=== PATIENT | male | born 1990 | race American Indian/Alaskan Native ===

== ENCOUNTER 2020-07-21 01:14 | Emergency (ER) | payer SELFPAY ==
--- NOTE | 2020-07-21 06:58 | XRay Report ---
CHEST 1 VIEW INDICATION: HTN. COMPARISON: None. FINDINGS: Support devices: None. Heart: Normal. Lungs/Pleura: No acute pulmonary or pleural findings. IMPRESSION: 1. No acute findings. Signer Name: Miguel A Thorpe MD Signed: 07/21/2020 6:53 AM Workstation Name: [id number]
[2020-07-21 07:08] LABS: Basophils # (Auto) 0.1 K/mm3 (0.0-0.1); Basophils % (Auto) 0.6 % (0.0-1.8); Eosinophils # (Auto) 0.1 K/mm3 (0.0-0.4); Eosinophils % (Auto) 1.3 % (0.0-4.3); Hematocrit 42.1 % (35.5-45.6); Hemoglobin 14.4 gm/dl (11.8-15.2); Lymphocytes # (Auto) 1.5 K/mm3 (1.2-5.4); Lymphocytes % (Auto) 14.9 % (13.4-35.0); Mean Corpuscular HGB Conc 34 % (32-34); Mean Corpuscular Volume 88 fl (84-94); Monocytes % (Auto) 10.4 % (0.0-7.3); Platelet Count 329 K/mm3 (140-440); Red Blood Count 4.81 M/mm3 (3.65-5.03)
[2020-07-21 07:18] LABS: Partial Thromboplastin Time 30.7 Sec. (24.2-36.6)
--- NOTE | 2020-07-21 07:18 | Emergency Department Report ---
ED General Adult HPI - General Chief complaint: Nosebleed Stated complaint: NOSE BLEED Time Seen by Provider: 07/21/20 06:17 Source: patient Mode of arrival: Ambulatory Limitations: No Limitations - History of Present Illness Initial comments: This is a 30-year-old male who presents to the emergency department because of nosebleed. He describes a minimal amount of bleeding from his left nares. He states he has not had this before. He does admit to noncompliance with previous prescription of blood pressure medicine. He does not refer shortness of breath or pain otherwise. He denies headache or any focal neurological type symptoms. He denies any unusual activity last night. -: minutes(s) Associated Symptoms: denies other symptoms - Related Data Previous Rx's Medication Instructions Recorded Last Taken Type Lisinopril/Hydrochlorothiazide 1 tab PO QDAY #30 tab 07/21/20 Unknown Rx [Zestoretic 20-12.5 mg] labetaloL [Labetalol 200mg TAB] 200 mg PO BID #60 tablet 07/21/20 Unknown Rx Allergies Allergy/AdvReac Type Severity Reaction Status Date / Time No Known Allergies Allergy Unverified 07/21/20 01:53 ED Review of Systems ROS: Stated complaint: NOSE BLEED Other details as noted in HPI Comment: All other systems reviewed and negative ED Past Medical Hx - Past Medical History Hx Hypertension: Yes - Surgical History Past Surgical History?: No - Social History Smoking Status: Current Every Day Smoker Substance Use Type: Alcohol - Medications Home Medications: Home Medications Medication Instructions Recorded Confirmed Last Taken Type Lisinopril/Hydrochlorothiazide 1 tab PO QDAY #30 tab 07/21/20 Unknown Rx [Zestoretic 20-12.5 mg] labetaloL [Labetalol 200mg TAB] 200 mg PO BID #60 tablet 07/21/20 Unknown Rx ED Physical Exam - General Limitations: No Limitations General appearance: alert, in no apparent distress - Head Head exam: Present: atraumatic, normocephalic - Eye Eye exam: Present: normal appearance - ENT ENT exam: Present: mucous membranes moist, other (Minimal blood noted, no active bleeding) - Neck Neck exam: Present: normal inspection - Respiratory Respiratory exam: Present: normal lung sounds bilaterally. Absent: respiratory distress - Cardiovascular Cardiovascular Exam: Present: regular rate, normal rhythm. Absent: systolic murmur, diastolic murmur, rubs, gallop - GI/Abdominal GI/Abdominal exam: Present: soft, normal bowel sounds. Absent: distended, tenderness, guarding, rebound - Rectal Rectal exam: Present: deferred - Extremities Exam Extremities exam: Present: normal inspection - Back Exam Back exam: Present: normal inspection - Neurological Exam Neurological exam: Present: alert, oriented X3, CN II-XII intact. Absent: motor sensory deficit - Psychiatric Psychiatric exam: Present: normal affect, normal mood - Skin Skin exam: Present: warm, dry, intact, normal color. Absent: rash ED Course Vital Signs 07/21/20 07/21/20 07/21/20 01:53 07:11 07:15 Temperature 99 F Pulse Rate 108 H 107 H 98 H Respiratory 18 18 23 Rate Blood Pressure 236/143 233/138 Blood Pressure [Right] O2 Sat by Pulse 100 Oximetry 07/21/20 07/21/20 07/21/20 07:16 07:31 07:45 Temperature 98.7 F Pulse Rate 99 H 93 H 80 Respiratory 18 20 21 Rate Blood Pressure 233/138 233/138 Blood Pressure 233/138 [Right] O2 Sat by Pulse 100 Oximetry 07/21/20 07/21/20 07/21/20 08:01 08:13 08:15 Temperature Pulse Rate 85 93 H 90 Respiratory 23 24 Rate Blood Pressure 233/138 203/118 203/118 Blood Pressure [Right] O2 Sat by Pulse Oximetry 07/21/20 07/21/20 07/21/20 08:20 08:31 08:45 Temperature Pulse Rate 93 H 86 101 H Respiratory 23 21 Rate Blood Pressure 203/118 203/118 203/118 Blood Pressure [Right] O2 Sat by Pulse Oximetry 07/21/20 07/21/20 07/21/20 09:00 09:15 09:31 Temperature Pulse Rate 87 85 79 Respiratory 22 23 21 Rate Blood Pressure 186/108 180/107 176/101 Blood Pressure [Right] O2 Sat by Pulse Oximetry 07/21/20 07/21/20 07/21/20 09:45 10:00 10:15 Temperature Pulse Rate 85 89 88 Respiratory 19 24 21 Rate Blood Pressure 170/109 178/107 190/115 Blood Pressure [Right] O2 Sat by Pulse Oximetry 07/21/20 07/21/20 07/21/20 10:30 10:45 11:00 Temperature Pulse Rate 95 H 90 87 Respiratory 23 24 24 Rate Blood Pressure 184/121 187/111 182/110 Blood Pressure [Right] O2 Sat by Pulse Oximetry 07/21/20 07/21/20 07/21/20 11:15 11:30 11:45 Temperature Pulse Rate 91 H 86 94 H Respiratory 22 22 18 Rate Blood Pressure 177/108 191/121 165/117 Blood Pressure [Right] O2 Sat by Pulse Oximetry 07/21/20 07/21/20 07/21/20 12:09 12:15 12:30 Temperature Pulse Rate 91 H 86 84 Respiratory 20 22 22 Rate Blood Pressure 165/117 201/109 203/113 Blood Pressure [Right] O2 Sat by Pulse 96 96 Oximetry 07/21/20 07/21/20 07/21/20 12:45 13:00 13:02 Temperature Pulse Rate 93 H 88 75 Respiratory 22 22 Rate Blood Pressure 209/119 204/111 203/117 Blood Pressure [Right] O2 Sat by Pulse 95 97 Oximetry 07/21/20 07/21/20 07/21/20 13:15 13:30 13:35 Temperature Pulse Rate 86 88 82 Respiratory 20 22 Rate Blood Pressure 196/126 186/109 186/109 Blood Pressure [Right] O2 Sat by Pulse 98 97 Oximetry - Reevaluation(s) Reevaluation #1: Patient did require several doses of labetalol. Ultimately he was given p.o. clonidine and Vasotec. His blood pressure reached a reasonable target. He was completely asymptomatic except for the mild epistaxis. Patient is appropriate for outpatient management. The necessity of getting his prescriptive medications is strongly emphasized. The need for frequent monitoring of his blood pressure is likewise explained. He is given return criteria. Should his blood pressure become extremely elevated again he will return and likely admission will be necessitated. 07/21/20 13:43 Reevaluation #2: No further nosebleed. Patient remained asymptomatic. He is appropriate for outpatient management. 07/21/20 13:51 ED Medical Decision Making - Lab Data Result diagrams: 07/21/20 06:42 07/21/20 06:42 Laboratory Results - last 24 hr 07/21/20 07/21/20 07/21/20 06:42 06:42 06:42 WBC 10.0 RBC 4.81 Hgb 14.4 Hct 42.1 MCV 88 MCH 30 MCHC 34 RDW 13.0 L Plt Count 329 Lymph % (Auto) 14.9 [place] % (Auto) 10.4 H Eos % (Auto) 1.3 Baso % (Auto) 0.6 Lymph # (Auto) 1.5 [place] # (Auto) 1.0 H Eos # (Auto) 0.1 Baso # (Auto) 0.1 Seg Neutrophils % 72.8 H Seg Neutrophils # 7.3 PT 13.1 INR 1.00 APTT 30.7 Sodium 138 Potassium 3.7 Chloride TNR Carbon Dioxide 28 Anion Gap 13 BUN 25 H Creatinine 1.0 Estimated GFR > 60 BUN/Creatinine Ratio 25 Glucose 111 H Calcium 9.8 Magnesium 2.20 Total Bilirubin AST Alkaline Phosphatase CK-MB (CK-2) Troponin T Total Protein Albumin Albumin/Globulin Ratio 07/21/20 07/21/20 06:42 06:42 WBC RBC Hgb Hct MCV MCH MCHC RDW Plt Count Lymph % (Auto) [facility] % (Auto) Eos % (Auto) Baso % (Auto) Lymph # (Auto) [facility] # (Auto) Eos # (Auto) Baso # (Auto) Seg Neutrophils % Seg Neutrophils # PT INR APTT Sodium Potassium Chloride Carbon Dioxide Anion Gap BUN Creatinine Estimated GFR BUN/Creatinine Ratio Glucose Calcium Magnesium Total Bilirubin 0.40 AST 27 Alkaline Phosphatase 88 CK-MB (CK-2) 5.9 H 6.0 H Troponin T < 0.010 Total Protein 8.2 Albumin 4.6 Albumin/Globulin Ratio 1.3 - EKG Data -: EKG Interpreted by Ar EKG shows normal: sinus rhythm, axis, intervals, QRS complexes, ST-T waves Rate: normal - EKG Data Interpretation: no acute changes - Radiology Data Radiology results: report reviewed (Chest x-ray no acute process) Critical care attestation.: If time is entered above; I have spent that time in minutes in the direct care of this critically ill patient, excluding procedure time. ED Disposition Clinical Impression: Accelerated hypertension, Epistaxis Disposition: TO HOME OR SELFCARE Is pt being admited?: No Does the pt Need Aspirin: No Condition: Stable Instructions: Preventing Hypertension, Hypertension (ED) Additional Instructions: You must monitor your blood pressure quite frequently. I would recommend 3-4 times a day. If the upper number goes over 200 again or the lower number over 120, you should return to the emergency department for further care and evaluation. It is essential that you get your prescription and begin it today as well as follow-up at the [facility]. Prescriptions: labetaloL [Labetalol 200mg TAB] 200 mg PO BID #60 tablet Lisinopril/Hydrochlorothiazide [Zestoretic 20-12.5 mg] 1 tab PO QDAY #30 tab Referrals: PRIMARY CARE, [Primary Care Provider] - 3-5 Days [facility] [Provider Group] - 2-3 Days Time of Disposition: 13:45
[2020-07-21 07:23] LABS: BUN/Creatinine Ratio 25; Blood Urea Nitrogen 25 mg/dL (9-20); Calcium 9.8 mg/dL (8.4-10.2); Hemolysis Index 2
[2020-07-21 07:25] LABS: Creatine Kinase MB 5.9 ng/mL (0.0-4.0)
[2020-07-21 07:27] LABS: Albumin 4.6 g/dL (3.9-5)
[2020-07-21 08:25] LABS: Bilirubin,Urine NEG (Negative); Blood,Urine SM (Negative); Color,Urine Yellow (Yellow); Mucus,Urine FEW /HPF; Protein,Urine <15 mg/dL mg/dL (Negative); Urobilinogen,Urine < 2.0 mg/dL (<2.0)
[2020-07-21 08:33] LABS: Amphetamine Screen,Urine Negative; Benzodiazepines Screen,Urine Negative; Cocaine Screen,Urine Negative; Methadone Screen,Urine Negative; Opiate Screen,Urine Negative
[2020-07-21 08:48] LABS: Alanine Aminotransferase 38 units/L (7-56)
[2020-07-21 08:52] LABS: Cannabinoid Screen,Urine PRESUMPTIVE POSITIVE
[2020-07-21 08:52] LABS: Bilirubin,Direct < 0.2 mg/dL (0-0.2)
[2020-07-21] MEDS ORDERED: ENALAPRILAT 2.5 MG/2 ML INJ IV ONE (12:50)
[2020-07-21] MEDS ORDERED: cloNIDine 0.2 MG TAB ONE (12:58)
[2020-07-21] MEDS ORDERED: cloNIDine 0.2 MG TAB PO ONE (13:01)
[2020-07-21 14:25] VITALS: BP 162/90
== END 2020-07-21 14:24 | disposition home or self-care (01) ==
LOC: ED 01:14
DX: R04.0 Epistaxis (principal); I10 Essential (primary) hypertension; F17.200 Nicotine dependence, unspecified, uncomplicated; Z79.899 Other long term (current) drug therapy
CPT/HCPCS: 36415; 71045; 80048; 80076; 80307; 81001; 82550; 82553; 83735; 84484; 85025; 85610; 85730; 93005; 96374; 96375

== ENCOUNTER 2022-04-01 18:09 | Inpatient (IN) | payer OTHER ==
[2022-04-01] MEDS ORDERED: hydrALAZINE 100 MG TAB PO ONE (18:22)
[2022-04-01 19:09] LABS: Basophils # (Auto) 0.1 K/mm3 (0.0-0.1); Basophils % (Auto) 0.9 % (0.0-1.8); Eosinophils # (Auto) 0.2 K/mm3 (0.0-0.4); Eosinophils % (Auto) 2.8 % (0.0-4.3); Hematocrit 41.2 % (35.5-45.6); Hemoglobin 13.9 gm/dl (11.8-15.2); Lymphocytes # (Auto) 0.8 K/mm3 (1.2-5.4); Mean Corpuscular HGB Conc 34 % (32-34); Mean Corpuscular Volume 86 fl (84-94); Monocytes # (Auto) 1.1 K/mm3 (0.0-0.8); Monocytes % (Auto) 12.4 % (0.0-7.3); Platelet Count 341 K/mm3 (140-440); Red Cell Distribution Width 13.5 % (13.2-15.2)
--- NOTE | 2022-04-01 19:22 | XRay Report ---
CHEST 1 VIEW 04/01/2022 6:16 PM INDICATION / CLINICAL INFORMATION: Chest Pain. COMPARISON: One view of the chest from 07/21/2020. FINDINGS: SUPPORT DEVICES: None. HEART / MEDIASTINUM: The cardiac silhouette is mildly enlarged. LUNGS / PLEURA: There are generalized bilateral interstitial opacities. No dense area of consolidatio n. No significant pleural effusion. No pneumothorax. ADDITIONAL FINDINGS: No significant additional findings. IMPRESSION: Mild cardiomegaly with suspected pulmonary edema. Signer Name: Boris Stevens MD Signed: 04/01/2022 7:18 PM Workstation Name: [id number]
[2022-04-01 19:34] LABS: Alanine Aminotransferase 24 units/L (7-56); Albumin 4.5 g/dL (3.9-5); BUN/Creatinine Ratio 16; Blood Urea Nitrogen 21 mg/dL (9-20); Calcium 9.5 mg/dL (8.4-10.2); Hemolysis Index 3
[2022-04-01] MEDS ORDERED: hydrALAZINE 20 MG/1 ML INJ IV ONE (20:06)
--- NOTE | 2022-04-01 21:00 | Cat Scan Report ---
CTA CHEST, ABDOMEN, AND PELVIS (AORTIC DISSECTION) INDICATION / CLINICAL INFORMATION: Chest pain, LLQ pain. TECHNIQUE: Axial CT images were obtained through the chest, abdomen, and pelvis after injection of 10 0 cc Omnipaque 350 IV contrast. 3 plane MIP and/or 3D reconstructions were produced. All CT scans at this location are performed using CT dose reduction for ALARA by means of automated exposure control. COMPARISON: 2 views of the chest performed today. FINDINGS: HEART: - Size: Mildy enlarged. - [place] Coronary Calcification: None. - Pericardium: No pericardial effusion. THORACIC AORTA: - Dissection: No dissection. - Aneurysm: No aneurysm or pseudoaneurysm. - Atherosclerosis: No significant atherosclerosis. GREAT VESSELS: No acute abnormality. No significant atherosclerosis. PULMONARY ARTERIES: No pulmonary emboli. CHEST VEINS: Single SVC of normal caliber as visualized to the right of midline. No significant abnor mality. ABDOMINAL AORTA: - Dissection: No dissection. - Aneurysm: No aneurysm or pseudoaneurysm. - Atherosclerosis: No significant atherosclerosis. CELIAC TRUNK: No significant abnormality. SUPERIOR MESENTERIC ARTERY: No significant abnormality. RENAL ARTERIES: No significant abnormality. INFERIOR MESENTERIC ARTERY: No significant abnormality. RIGHT ILIAC ARTERIES: No acute abnormality. No significant atherosclerosis. LEFT ILIAC ARTERIES: No acute abnormality. No significant atherosclerosis. RIGHT FEMORAL ARTERIES: No acute abnormality. No significant atherosclerosis. LEFT FEMORAL ARTERIES: No acute abnormality. No significant atherosclerosis. ABDOMINOPELVIC VEINS: Single IVC of normal caliber to the right of midline. No significant abnormalit y. ADDITIONAL CHEST FINDINGS: No significant additional findings. ADDITIONAL ABDOMINOPELVIC FINDINGS: No significant additional findings. SKELETAL SYSTEM: No significant abnormality. IMPRESSION: 1. No aortic dissection or other acute findings. 2. Mild cardiomegaly. Signer Name: Boris Stevens MD Signed: 04/01/2022 8:55 PM Workstation Name: [id number]
--- NOTE | 2022-04-01 21:47 | Emergency Department Report ---
ED Chest Pain HPI - General Chief Complaint: Chest Pain Stated Complaint: CHEST & LEFT SIDE PAIN FOR THE PAST 45 MIN Time Seen by Provider: 04/01/22 19:08 Source: patient Mode of arrival: Ambulatory Limitations: No Limitations - History of Present Illness Initial Comments: Patient is a 31-year-old male presenting to ED with complaint of left-sided chest pain which he describes as burning in nature. Symptoms began roughly an hour ago. He also complains of left lower quadrant pain beginning around the same time. He denies any past medical history aside from hypertension and does not take any medications. Severity scale (0 -10): 7 - Related Data Previous Rx's Medication Instructions Recorded Last Taken Type Lisinopril/Hydrochlorothiazide 1 tab PO QDAY #30 tab 07/21/20 Unknown Rx [Zestoretic 20-12.5 mg] labetaloL [Labetalol 200mg TAB] 200 mg PO BID #60 tablet 07/21/20 Unknown Rx Allergies Allergy/AdvReac Type Severity Reaction Status Date / Time No Known Allergies Allergy Verified 04/01/22 18:19 Heart Score - HEART Score History: Slightly suspicious EKG: Non-specific Age: < 45 Risk factors: 1-2 risk factors Troponin: < normal limit HEART Score: 2 - EKG Read Time Time EKG Completed: 18:23 (;) EKG Read Time: 18:27 - Critical Actions Critical Actions: 0-3 pts:0.9-1.7%risk of adverse cardiac event.Candidate for discharge ED Review of Systems ROS: Stated complaint: CHEST & LEFT SIDE PAIN FOR THE PAST 45 MIN Other details as noted in HPI Comment: All other systems reviewed and negative Constitutional: denies: chills, fever ENT: denies: ear pain, throat pain Respiratory: denies: cough, shortness of breath, wheezing Cardiovascular: chest pain Endocrine: no symptoms reported Gastrointestinal: abdominal pain. denies: nausea, vomiting Genitourinary: denies: urgency, dysuria Musculoskeletal: denies: back pain, joint swelling, arthralgia Skin: denies: rash, lesions Neurological: denies: headache, weakness, paresthesias Psychiatric: denies: anxiety, depression ED Past Medical Hx - Past Medical History Hx Hypertension: Yes - Social History Smoking Status: Never Smoker - Medications Home Medications: Home Medications Medication Instructions Recorded Confirmed Last Taken Type Lisinopril/Hydrochlorothiazide 1 tab PO QDAY #30 tab 07/21/20 Unknown Rx [Zestoretic 20-12.5 mg] labetaloL [Labetalol 200mg TAB] 200 mg PO BID #60 tablet 07/21/20 Unknown Rx ED Physical Exam - General Limitations: No Limitations General appearance: alert, in no apparent distress - Head Head exam: Present: atraumatic, normocephalic - Neck Neck exam: Present: normal inspection. Absent: tenderness - Respiratory Respiratory exam: Present: normal lung sounds bilaterally, respiratory distress - Cardiovascular Cardiovascular Exam: Present: regular rate, normal rhythm, normal heart sounds - GI/Abdominal GI/Abdominal exam: Present: soft. Absent: distended, tenderness - Rectal Rectal exam: Present: deferred - Neurological Exam Neurological exam: Present: alert, oriented X3 - Psychiatric Psychiatric exam: Present: normal affect, normal mood - Skin Skin exam: Present: warm, dry, intact, normal color ED Course Vital Signs 04/01/22 04/01/22 04/01/22 18:15 19:03 20:22 Pulse Rate 118 H 106 H Respiratory 16 Rate Blood Pressure 255/146 Blood Pressure 238/151 [Left] O2 Sat by Pulse 99 98 Oximetry 04/01/22 21:45 Pulse Rate 117 H Respiratory 20 Rate Blood Pressure Blood Pressure 223/108 [Left] O2 Sat by Pulse 99 Oximetry ED Medical Decision Making - Lab Data Result diagrams: 04/01/22 Unknown 04/01/22 Unknown - Medical Decision Making Blood pressure 238/151. Patient given IV hydralazine. Chest x-ray report shows cardiomegaly and possible edema. Patient denies any shortness of breath. CBC and CMP grossly unremarkable. Troponin is undetectable. CTA chest, abdomen and pelvis negative for dissection. Will start on nitro drip and admit to hospitalist for hypertensive urgency. Critical care attestation.: If time is entered above; I have spent that time in minutes in the direct care of this critically ill patient, excluding procedure time. ED Disposition Clinical Impression: Hypertensive urgency, Left-sided chest pain, Left lower quadrant pain Disposition: ADMITTED INPATIENT Is pt being admited?: Yes Condition: Stable
[2022-04-01] MEDS ORDERED: ASPIRIN 325 MG TAB PO ONE (22:10)
[2022-04-01] MEDS ORDERED: traMADol 50 MG TAB PO PRN (22:22)
[2022-04-01] MEDS ORDERED: MAGNESIUM HYDROXIDE (MOM) ORAL LIQD UDC PO PRN (22:22)
[2022-04-01] MEDS ORDERED: MORPHINE 2 MG/1 ML INJ IV PRN ×2 (22:22)
[2022-04-01] MEDS ORDERED: ACETAMINOPHEN 325 MG TAB PO PRN ×2 (22:22)
[2022-04-01] MEDS ORDERED: NITROGLYCERIN 0.4 MG TAB SUBL SL PRN (22:22)
[2022-04-01] MEDS ORDERED: MORPHINE 4 MG/1 ML INJ IV PRN (22:22)
--- NOTE | 2022-04-01 22:32 | History and Physical Report ---
History of Present Illness Date of examination: 04/01/22 Date of admission: 04/01/2022 Chief complaint: Chest Pain History of present illness: 31-year-old -[place] male with known history of hypertension presenting to the emergency room today complaining of chest pain. Chest pain is said to be left-sided and was burning in nature. Chest pain started about an hour prior to reporting to the emergency room. He admits that he has not been compliant with his blood pressure medication because he has been depressed lately. Chest pain is nonradiating, no known relieving or exacerbating factor. Patient denies any headache or dizziness, denies any nausea vomiting and denies any hematuria or dysuria. Denies any cough or shortness of breath. Upon arrival in the emergency room today blood pressure was in the 230s systolic and 120s diastolic. He had a dose of IV hydralazine without any significant improvement. He was subsequently placed on nitro glycerin drip. Work-up in the emergency room today including labs, CT scan of the chest and abdomen were unremarkable. Patient being admitted for hypertensive urgency. Past History Past Medical History: hypertension Past Surgical History: No surgical history Social history: smoking (Occasionally), alcohol abuse (Occasionally) Family history: diabetes (Mother) Medications and Allergies Allergies Allergy/AdvReac Type Severity Reaction Status Date / Time No Known Allergies Allergy Verified 04/01/22 18:19 Home Medications Medication Instructions Recorded Confirmed Last Taken Type Lisinopril/Hydrochlorothiazide 1 tab PO QDAY #30 tab 07/21/20 Unknown Rx [Zestoretic 20-12.5 mg] labetaloL [Labetalol 200mg TAB] 200 mg PO BID #60 tablet 07/21/20 Unknown Rx Active Meds: Active Medications Acetaminophen (Acetaminophen 325 Mg Tab) 650 mg PO Q6H PRN PRN Reason: Pain, Mild (1-3) Acetaminophen (Acetaminophen 325 Mg Tab) 650 mg PO Q6H PRN PRN Reason: Pain MILD(1-3)/Fever >100.5/RIOS Nitroglycerin/Dextrose (Tridil Drip 50mg/250ml) 50 mg in 250 mls @ 3 mls/hr IV TITR BILL; Protocol Sodium Chloride (Sodium Chloride 0.9% 10 Ml Flush Syringe) 10 ml IV BID BILL Sodium Chloride (Sodium Chloride 0.9% 10 Ml Flush Syringe) 10 ml IV PRN PRN PRN Reason: LINE FLUSH Sodium Chloride (Sodium Chloride 0.9% 10 Ml Flush Syringe) 10 ml IV PRN PRN PRN Reason: LINE FLUSH Tramadol HCl (Tramadol 50 Mg Tab) 50 mg PO Q6H PRN PRN Reason: Pain, Moderate (4-6) Review of Systems Constitutional: no fever, no chills Ears, nose, mouth and throat: no nasal congestion, no sore throat Cardiovascular: chest pain, no palpitations Respiratory: no cough, no shortness of breath Gastrointestinal: abdominal pain, no nausea, no vomiting, no diarrhea Genitourinary Male: no dysuria, no hematuria, no flank pain Musculoskeletal: no neck pain, no low back pain Integumentary: no rash, no pruritis Neurological: no headaches, no confusion Psychiatric: no anxiety, no depression Endocrine: no polyphagia, no polydipsia, no polyuria Exam - Constitutional Vitals: Temp Pulse Resp BP Pulse Ox 117 H 20 223/108 99 04/01/22 21:45 04/01/22 21:45 04/01/22 21:45 04/01/22 21:45 General appearance: Present: no acute distress, well-nourished - EENT Eyes: Present: PERRL, EOM intact. Absent: scleral icterus ENT: hearing intact, clear oral mucosa, dentition normal - Neck Neck: Present: supple, normal ROM - Respiratory Respiratory effort: normal Respiratory: bilateral: CTA - Cardiovascular Rhythm: regular Heart Sounds: Present: S1 & S2. Absent: gallop, systolic murmur, diastolic murmur, rub, click - Extremities Extremities: no ischemia, pulses intact, pulses symmetrical, No edema, normal temperature, normal color, Full ROM Peripheral Pulses: within normal limits - Abdominal General gastrointestinal: Present: soft, non-tender, non-distended, normal bowel sounds. Absent: mass - Integumentary Integumentary: Present: clear, warm, dry, normal turgor. Absent: rash - Musculoskeletal Musculoskeletal: strength equal bilaterally - Psychiatric Psychiatric: appropriate mood/affect, intact judgment & insight, memory intact, cooperative - Neurologic Neurologic: CNII-XII intact, no focal deficits, moves all extremities HEART Score - HEART Score EKG: Non-specific Age: < 45 Risk factors: 1-2 risk factors Troponin: Troponin T < 0.010 ng/mL (0.00-0.029) 04/01/22 Unknown Troponin: < normal limit - Critical Actions Critical Actions: 0-3 pts:0.9-1.7%risk of adverse cardiac event.Candidate for discharge Results - Labs CBC & Chem 7: 04/01/22 Unknown 04/01/22 Unknown Labs: Abnormal lab results 04/01/22 04/01/22 Range/Units Unknown Unknown Lymph % (Auto) 9.0 L (13.4-35.0) % [place] % (Auto) 12.4 H (0.0-7.3) % Lymph # (Auto) 0.8 L (1.2-5.4) K/mm3 [place] # (Auto) 1.1 H (0.0-0.8) K/mm3 Seg Neutrophils % 74.9 H (40.0-70.0) % BUN 21 H (9-20) mg/dL Glucose 141 H (75-100) mg/dL Assessment and Plan Assessment: 1. Hypertensive urgency 2. Medication noncompliance 3. Chest pain 4. Abdominal pain-unclear etiology Plan: 1. Patient admitted and placed on nitro drip. We titrate according to protocol 2. We will check serial cardiac enzymes. 3. Patient counseled on compliance with medication DVT Prophylaxis:SQ Heparin Code Status: Full Code
[2022-04-01] MEDS ORDERED: NITROGLYCERIN DRIP 50 MG/250 ML BOTTLE IV SCH (23:00)
[2022-04-01 23:06] LABS: BUN/Creatinine Ratio 16; Blood Urea Nitrogen 16 mg/dL (9-20); Calcium 9.6 mg/dL (8.4-10.2); Hemolysis Index 4
[2022-04-02] MEDS: ONDANSETRON 4 MG/2 ML INJ IV PRN ×2 (02:00→17:44)
[2022-04-02] MEDS ORDERED: hydrALAZINE 20 MG/1 ML INJ ONE (06:19)
[2022-04-02 06:43] LABS: BUN/Creatinine Ratio 16; Blood Urea Nitrogen 16 mg/dL (9-20); Calcium 9.6 mg/dL (8.4-10.2); Hemolysis Index 22
[2022-04-02] MEDS ORDERED: NON-FORMULARY EACH (Lisinopril/Hydrochlorothiazide [Zestoretic 20-12.5 Mg] 1 EACH Tablet) PO SCH (10:00)
[2022-04-02] MEDS ORDERED: LISINOPRIL 20 MG TAB PO SCH (10:00)
--- NOTE | 2022-04-02 10:07 | Progress Note ---
<ULISES CARRILLO - Last Filed: 04/02/22 19:22> Assessment and Plan Assessment and plan: This is a 31-year-old AA male with known past medical history of depression, hypertension, and tobacco dependence, noncompliant with meds admitted for CP and hypertensive Emergency Hospital Course to Date: 04/02: Remains on Nitro gtt, SBP still in the 200s this am. Willl resume patient's home meds- labetalol, HTZ, and Lisinopril. Consider cardene gtt if patient remains hypertensive. Cardiomegaly and possible pulmonary edema noted from CXR, Check BNP, 2D Echo pending. Wean drip as tolerated for SBP goal less than 160. Headache most like r/t nitro gtt, PRN analgesia for pain control. CCM and Cardiology consulted. Assessment and Plan #Hypertensive Emergency #Cardiomegaly #Possible Pulmonary Edema #Chest Pain-resolved #Medication Noncompliance - Presented with SBP in the 200s, DBP in the 130s, and chest pain- burning sensation on the left side - Patient admit noncomplaince with his meds for the past 2 years and he does not have a PCP - Nitro gtt initiated in the ED - Still hypertensive this am. Patient denied any CP this am. Troponin negative X2 - Troponin neg X2. SR/ST on the monitor, no sign. ST changes noted - CTA with no evidence of PE nor Aortic aneurysm/dissection - Continue Nitro gtt. Homed meds resumed- Labetalol, HTZ, and lisinopril - Consider cardene gtt if patient remains hypertensive - Continue blood pressure monitor per protocol - Wean antihypertensive drip as tolerated for SBP goal less than 160 - cardiomegaly and possible pulmonary edema noted from CXR - Check BNP, 2D Echo pending - Continue to trend troponin - Strict I&Os and daily weight - CCM consulted #Abdominal pain-unclear etiology #Nausea/Vomiting - Probably secondary to above - CTA abd/ pelvis unremakable - Still with mild nausea and Abdominal pain this am - PRN analgesia for pain - PRN antiemetic for N/V #Depression - Per patient depression is stable now. - Current not on any therapy - Follow with psychiatrist outpatient #Tobacco Dependence - Current 1 pack a day smoker. 5 years smoking history - Smoking cessation education provided. Patient verbalized understanding and agreed with the info provided - Nicotine qday #GI/DVT Prophylaxis - PPI- Pepcid - Lovenox SubQ - SCDs to bilateral lower extremities while in bed #Advance Care Planning - Disease education data, care plan, diagnoses, and prognosis were discussed with patient at the bedside. Patient is a FULL code. Patient acknowledged understanding and agreed with current care plan. The high probability of a clinically significant, sudden or life threatening deterioration of the [multiple] system(s) required my full and direct attention, intervention and personal management. The aggregate critical care time was [60] minutes. This time is in addition to time spent performing reported procedures but includes the following: [x] Data Review and interpretation [x] Patient assessment and monitoring of vital signs [x] Documentation [x] Medication orders and management Disposition Plan: ICU Total Time Spent with Patient (Minutes): 60 History Interval history: Patient seen and examined at the bedside. Fully AAO, on RA, c/o of mild RIOS, nausea, and abdominal pain. Denied any chest pain, and no vomiting reported. Remains hypertensive on Nitro gtt. SR/ST on the monitor HR in the 90-110s, no significant ST changes appreciated. Hospitalist Physical - Constitutional Vitals: Temp Pulse Resp BP Pulse Ox 100 H 20 170/102 99 04/02/22 08:48 04/02/22 08:48 04/02/22 08:48 04/02/22 08:48 General appearance: Present: no acute distress, well-nourished, obese - EENT Eyes: Present: PERRL, EOM intact ENT: hearing intact - Neck Neck: Present: normal ROM - Respiratory Respiratory effort: normal Respiratory: bilateral: CTA - Cardiovascular Rhythm: regular Heart Sounds: Present: S1 & S2 - Extremities Extremities: no ischemia, pulses intact, pulses symmetrical Extremity abnormal: edema Peripheral Pulses: within normal limits - Abdominal General gastrointestinal: soft, non-distended, normal bowel sounds - Integumentary Integumentary: Present: clear, warm, dry - Psychiatric Psychiatric: appropriate mood/affect, cooperative - Neurologic Neurologic: CNII-XII intact, moves all extremities - Allied Health Allied health notes reviewed: nursing HEART Score - HEART Score EKG: Non-specific Age: < 45 Risk factors: 1-2 risk factors Troponin: Troponin T < 0.010 ng/mL (0.00-0.029) 04/02/22 05:59 Troponin: < normal limit - Critical Actions Critical Actions: 0-3 pts:0.9-1.7%risk of adverse cardiac event.Candidate for discharge Results - Labs CBC & Chem 7: 04/01/22 Unknown 04/02/22 05:59 Labs: Laboratory Last Values WBC 8.6 K/mm3 (4.5-11.0) 04/01/22 Unknown RBC 4.80 M/mm3 (3.65-5.03) 04/01/22 Unknown Hgb 13.9 gm/dl (11.8-15.2) 04/01/22 Unknown Hct 41.2 % (35.5-45.6) 04/01/22 Unknown MCV 86 fl (84-94) 04/01/22 Unknown MCH 29 pg (28-32) 04/01/22 Unknown MCHC 34 % (32-34) 04/01/22 Unknown RDW 13.5 % (13.2-15.2) 04/01/22 Unknown Plt Count 341 K/mm3 (140-440) 04/01/22 Unknown Lymph % (Auto) 9.0 % (13.4-35.0) L 04/01/22 Unknown Payne % (Auto) 12.4 % (0.0-7.3) H 04/01/22 Unknown Eos % (Auto) 2.8 % (0.0-4.3) 04/01/22 Unknown Baso % (Auto) 0.9 % (0.0-1.8) 04/01/22 Unknown Lymph # (Auto) 0.8 K/mm3 (1.2-5.4) L 04/01/22 Unknown Payne # (Auto) 1.1 K/mm3 (0.0-0.8) H 04/01/22 Unknown Eos # (Auto) 0.2 K/mm3 (0.0-0.4) 04/01/22 Unknown Baso # (Auto) 0.1 K/mm3 (0.0-0.1) 04/01/22 Unknown Seg Neutrophils % 74.9 % (40.0-70.0) H 04/01/22 Unknown Seg Neutrophils # 6.4 K/mm3 (1.8-7.7) 04/01/22 Unknown PT 14.6 Sec. (12.2-14.9) 04/01/22 Unknown INR 1.00 (0.87-1.13) 04/01/22 Unknown APTT 31.0 Sec. (24.2-36.6) 04/01/22 Unknown Sodium 136 mmol/L (137-145) L 04/02/22 05:59 Potassium 4.0 mmol/L (3.6-5.0) 04/02/22 05:59 Chloride 97.6 mmol/L (98-107) L 04/02/22 05:59 Carbon Dioxide 24 mmol/L (22-30) 04/02/22 05:59 Anion Gap 18 mmol/L 04/02/22 05:59 BUN 16 mg/dL (9-20) 04/02/22 05:59 Creatinine 1.0 mg/dL (0.8-1.3) 04/02/22 05:59 Estimated GFR > 60 ml/min 04/02/22 05:59 BUN/Creatinine Ratio 16 % 04/02/22 05:59 Glucose 116 mg/dL (75-100) H 04/02/22 05:59 Calcium 9.6 mg/dL (8.4-10.2) 04/02/22 05:59 Total Bilirubin 0.30 mg/dL (0.1-1.2) 04/01/22 Unknown AST 19 units/L (5-40) 04/01/22 Unknown ALT 24 units/L (7-56) 04/01/22 Unknown Alkaline Phosphatase 100 units/L (35-129) 04/01/22 Unknown Troponin T < 0.010 ng/mL (0.00-0.029) 04/02/22 05:59 Total Protein 8.1 g/dL (6.3-8.2) 04/01/22 Unknown Albumin 4.5 g/dL (3.9-5) 04/01/22 Unknown Albumin/Globulin Ratio 1.3 % 04/01/22 Unknown Active Medications - Current Medications Current Medications: Generic Name Dose Route Start Last Admin Trade Name Freq PRN Reason Stop Dose Admin Acetaminophen 650 mg 04/01/22 22:22 Acetaminophen 325 Mg Tab PO Q6H PRN Pain, Mild (1-3) Aspirin 325 mg 04/02/22 10:00 Aspirin Ec 325 Mg Tab PO QDAY [facility] Hydrochlorothiazide 12.5 mg 04/02/22 10:00 Hydrochlorothiazide 12.5 Mg Cap PO QDAY BILL Nitroglycerin/Dextrose 50 mg in 250 mls @ 3 mls/hr 04/01/22 23:00 04/02/22 00:00 Tridil Drip 50mg/250ml IV 10 mcg/min TITR BILL 3 mls/hr Administration Protocol 10 MCG/MIN Labetalol HCl 200 mg 04/02/22 10:00 Labetalol 200 Mg Tab PO BID BILL Lisinopril 20 mg 04/02/22 10:00 Lisinopril 20 Mg Tab PO QDAY BILL Magnesium Hydroxide 30 ml 04/01/22 22:22 Magnesium Hydroxide (Mom) Oral Liqd Udc PO Q4H PRN Constipation Morphine Sulfate 2 mg 04/01/22 22:22 Morphine 2 Mg/1 Ml Inj IV Q4H PRN Pain, Moderate (4-6) Morphine Sulfate 4 mg 04/01/22 22:22 04/02/22 06:00 Morphine 4 Mg/1 Ml Inj IV 4 mg Q4H PRN Administration Pain , Severe (7-10) Morphine Sulfate 2 mg 04/01/22 22:22 Morphine 2 Mg/1 Ml Inj IV Q5MIN PRN Chest Pain unrelieved by NTG Nitroglycerin 0.4 mg 04/01/22 22:22 Nitroglycerin 0.4 Mg Tab Subl SL Q5M PRN Chest Pain Ondansetron HCl 4 mg 04/01/22 22:22 04/02/22 02:00 Ondansetron 4 Mg/2 Ml Inj IV 4 mg Q8H PRN Administration Nausea And Vomiting Sodium Chloride 10 ml 04/02/22 10:00 Sodium Chloride 0.9% 10 Ml Flush Syringe IV BID BILL Sodium Chloride 10 ml 04/01/22 22:22 Sodium Chloride 0.9% 10 Ml Flush Syringe IV PRN PRN LINE FLUSH Tramadol HCl 50 mg 04/01/22 22:22 Tramadol 50 Mg Tab PO Q6H PRN Pain, Moderate (4-6) <MELISSA MANCIA - Last Filed: 04/03/22 07:26> Assessment and Plan Assessment and plan: I saw and evaluated the patient. I agree with the findings and the plan of care as documented in the Nurse Practitioner's~note, with the following corrections and additions. Hospitalist Physical - Constitutional Vitals: Temp Pulse Resp BP Pulse Ox 99 F 112 H 36 H 160/95 95 04/03/22 03:00 04/03/22 07:21 04/03/22 07:21 04/03/22 07:21 04/03/22 07:21 HEART Score - HEART Score Troponin: Troponin T 0.033 ng/mL (0.00-0.029) H D 04/02/22 16:28 Results - Labs CBC & Chem 7: 04/01/22 Unknown 04/03/22 04:18 Labs: Laboratory Last Values WBC 8.6 K/mm3 (4.5-11.0) 04/01/22 Unknown RBC 4.80 M/mm3 (3.65-5.03) 04/01/22 Unknown Hgb 13.9 gm/dl (11.8-15.2) 04/01/22 Unknown Hct 41.2 % (35.5-45.6) 04/01/22 Unknown MCV 86 fl (84-94) 04/01/22 Unknown MCH 29 pg (28-32) 04/01/22 Unknown MCHC 34 % (32-34) 04/01/22 Unknown RDW 13.5 % (13.2-15.2) 04/01/22 Unknown Plt Count 341 K/mm3 (140-440) 04/01/22 Unknown Lymph % (Auto) 9.0 % (13.4-35.0) L 04/01/22 Unknown Payne % (Auto) 12.4 % (0.0-7.3) H 04/01/22 Unknown Eos % (Auto) 2.8 % (0.0-4.3) 04/01/22 Unknown Baso % (Auto) 0.9 % (0.0-1.8) 04/01/22 Unknown Lymph # (Auto) 0.8 K/mm3 (1.2-5.4) L 04/01/22 Unknown Payne # (Auto) 1.1 K/mm3 (0.0-0.8) H 04/01/22 Unknown Eos # (Auto) 0.2 K/mm3 (0.0-0.4) 04/01/22 Unknown Baso # (Auto) 0.1 K/mm3 (0.0-0.1) 04/01/22 Unknown Seg Neutrophils % 74.9 % (40.0-70.0) H 04/01/22 Unknown Seg Neutrophils # 6.4 K/mm3 (1.8-7.7) 04/01/22 Unknown PT 14.6 Sec. (12.2-14.9) 04/01/22 Unknown INR 1.00 (0.87-1.13) 04/01/22 Unknown APTT 31.0 Sec. (24.2-36.6) 04/01/22 Unknown Sodium 130 mmol/L (137-145) L 04/03/22 04:18 Potassium 4.6 mmol/L (3.6-5.0) 04/03/22 04:18 Chloride 92.9 mmol/L (98-107) L 04/03/22 04:18 Carbon Dioxide 25 mmol/L (22-30) 04/03/22 04:18 Anion Gap 17 mmol/L 04/03/22 04:18 BUN 29 mg/dL (9-20) H 04/03/22 04:18 Creatinine 1.7 mg/dL (0.8-1.3) H D 04/03/22 04:18 Estimated GFR 58 ml/min 04/03/22 04:18 BUN/Creatinine Ratio 17 % 04/03/22 04:18 Glucose 120 mg/dL (75-100) H 04/03/22 04:18 Calcium 9.4 mg/dL (8.4-10.2) 04/03/22 04:18 Phosphorus 5.00 mg/dL (2.5-4.5) H 04/03/22 04:18 Magnesium 2.20 mg/dL (1.7-2.3) 04/03/22 04:18 Total Bilirubin 0.30 mg/dL (0.1-1.2) 04/01/22 Unknown AST 19 units/L (5-40) 04/01/22 Unknown ALT 24 units/L (7-56) 04/01/22 Unknown Alkaline Phosphatase 100 units/L (35-129) 04/01/22 Unknown Troponin T 0.033 ng/mL (0.00-0.029) H D 04/02/22 16:28 NT-Pro-B Natriuret Pep 6583 pg/mL (0-450) H 04/02/22 16:28 Total Protein 8.1 g/dL (6.3-8.2) 04/01/22 Unknown Albumin 4.5 g/dL (3.9-5) 04/01/22 Unknown Albumin/Globulin Ratio 1.3 % 04/01/22 Unknown Triglycerides 51 mg/dL (2-149) 04/02/22 16:28 Cholesterol 173 mg/dL (50-199) 04/02/22 16:28 LDL Cholesterol Direct 120 mg/dL (50-130) 04/02/22 16:28 HDL Cholesterol 40 mg/dL (40-59) 04/02/22 16:28 Cholesterol/HDL Ratio 4.32 % 04/02/22 16:28 Active Medications - Current Medications Current Medications: Generic Name Dose Route Start Last Admin Trade Name Freq PRN Reason Stop Dose Admin Acetaminophen 650 mg 04/01/22 22:22 Acetaminophen 325 Mg Tab PO Q6H PRN Pain, Mild (1-3) Aspirin 325 mg 04/02/22 10:00 04/02/22 10:41 Aspirin Ec 325 Mg Tab PO 325 mg QDAY BILL Administration Enoxaparin Sodium 40 mg 04/03/22 10:00 Enoxaparin 40 Mg/0.4 Ml Inj SUB-Q QDAY@1000 BILL Protocol Famotidine 20 mg 04/02/22 11:00 04/02/22 10:41 Famotidine 20 Mg Tab PO 20 mg QDAY BILL Administration Hydrochlorothiazide 12.5 mg 04/02/22 10:00 04/02/22 11:37 Hydrochlorothiazide 12.5 Mg Cap PO 12.5 mg QDAY BILL Administration Nicardipine HCl 50 mg/ Sodium 250 mls @ 25 mls/hr 04/02/22 15:00 Chloride IV TITR BILL Protocol 5 MG/HR Labetalol HCl 300 mg 04/02/22 22:00 04/02/22 21:14 Labetalol 100 Mg Tab PO 300 mg BID BILL Administration Lisinopril 40 mg 04/02/22 17:00 04/02/22 17:25 Lisinopril 40 Mg Tab PO 20 mg QDAY BILL Administration Magnesium Hydroxide 30 ml 04/01/22 22:22 Magnesium Hydroxide (Mom) Oral Liqd Udc PO Q4H PRN Constipation Morphine Sulfate 2 mg 04/01/22 22:22 Morphine 2 Mg/1 Ml Inj IV Q4H PRN Pain, Moderate (4-6) Morphine Sulfate 2 mg 04/01/22 22:22 Morphine 2 Mg/1 Ml Inj IV Q5MIN PRN Chest Pain unrelieved by NTG Nicotine 21 mg 04/02/22 11:00 04/02/22 10:41 Nicotine 21 Mg/24 Hr Patch TD 21 mg QDAY BILL Administration Nitroglycerin 0.4 mg 04/01/22 22:22 Nitroglycerin 0.4 Mg Tab Subl SL Q5M PRN Chest Pain Ondansetron HCl 4 mg 04/01/22 22:22 04/03/22 01:28 Ondansetron 4 Mg/2 Ml Inj IV 4 mg Q8H PRN Administration Nausea And Vomiting Sodium Chloride 10 ml 04/02/22 10:00 04/02/22 21:15 Sodium Chloride 0.9% 10 Ml Flush Syringe IV 10 ml BID BILL Administration Sodium Chloride 10 ml 04/01/22 22:22 Sodium Chloride 0.9% 10 Ml Flush Syringe IV PRN PRN LINE FLUSH Tramadol HCl 50 mg 04/01/22 22:22 Tramadol 50 Mg Tab PO Q6H PRN Pain, Moderate (4-6) Nutrition/Malnutrition Assess - Dietary Evaluation Nutrition/Malnutrition Findings: Nutrition Notes Start: 04/02/22 11:36 Freq: Status: Active Protocol: Document 04/02/22 11:36 TW (Rec: 04/02/22 11:38 TW [id number]) Nutrition Notes Need for Assessment generated from: MD Order,Education Initial or Follow up Brief Note Current Diagnosis Hypertension Other Pertinent Diagnosis Hypertensive emergency Current Diet Cardiac Subjective/Other Information RD consulted for diet education. Pt has hx of medication non-compliance. Minimum of two criteria No Nutrition Intervention Follow-Up By: 04/06/22 Additional Comments F/U for diet education needs and intakes
[2022-04-02] MEDS: ASPIRIN EC 325 MG TAB PO SCH (10:41)
[2022-04-02] MEDS: FAMOTIDINE 20 MG TAB PO SCH (10:41)
[2022-04-02] MEDS: NICOTINE 21 MG/24 HR PATCH TD SCH (10:41)
[2022-04-02] MEDS: hydroCHLOROthiazide 12.5 MG CAP PO SCH (11:37)
--- NOTE | 2022-04-02 11:40 | Consultation ---
History of Present Illness Reason for consult: chest pain History of present illness: 31-year-old -H[place] male with known history of hypertension presenting to the emergency room today complaining of chest pain. Chest pain is said to be left-sided and was burning in nature. Chest pain started about an hour prior to reporting to the emergency room. He admits that he has not been compliant with his blood pressure medication because he has been depressed lately. Chest pain is nonradiating, no known relieving or exacerbating factor. Patient denies any headache or dizziness, denies any nausea vomiting and denies any hematuria or dysuria. Denies any cough or shortness of breath. Patient has history of asthma as child. Patient has history of smoking 1 pack a day x 6 years. Counseled to stop smoking. Denies alcohol or drug abuse. 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 No known drug allergies. Denies any surgical history. Upon arrival in the emergency room today blood pressure was in the 230s systolic and 120s diastolic. He had a dose of IV hydralazine without any significant improvement. He was subsequently placed on nitro glycerin drip. Work-up in the emergency room today including labs, CT scan of the chest and abdomen were unremarkable. Patient being admitted to ICU for hypertensive urgency. Patient awake. Resting on room air. O2 saturation 97%. Denies shortness of breath or cough. Still complaining chest pain. No acute respiratory distress. Patient afebrile. No leukocytosis. Blood pressure 185/108, pulse 108, Respirations 24. Chest xray 04/01/22 reported Mild cardiomegaly with suspected pulmonary edema. CTA of chest 04/01/22 reported No pulmonary emboli. Patient presently on S/C Lovenox, Famotidine and Nicotine patch. Cardiology consulted for chest pain. Chest pain management as per cardiology. Patients mother at bed side by the time of ny examination. Explained patients respiratory status to her. Past History Past Medical History: hypertension Past Surgical History: No surgical history Social history: smoking (Occasionally), alcohol abuse (Occasionally) Family history: diabetes (Mother) Medications and Allergies Allergies Allergy/AdvReac Type Severity Reaction Status Date / Time No Known Allergies Allergy Verified 04/02/22 10:47 Home Medications Medication Instructions Recorded Confirmed Last Taken Type No Known Home Medications [No 04/02/22 04/02/22 Unknown History Reported Home Medications] Active Meds: Active Medications Acetaminophen (Acetaminophen 325 Mg Tab) 650 mg PO Q6H PRN PRN Reason: Pain, Mild (1-3) Aspirin (Aspirin Ec 325 Mg Tab) 325 mg PO QDAY [facility] Last Admin: 04/02/22 10:41 Dose: 325 mg Enoxaparin Sodium (Enoxaparin 40 Mg/0.4 Ml Inj) 40 mg SUB-Q QDAY@1000 BILL; Protocol Famotidine (Famotidine 20 Mg Tab) 20 mg PO QDAY [facility] Last Admin: 04/02/22 10:41 Dose: 20 mg Hydrochlorothiazide (Hydrochlorothiazide 12.5 Mg Cap) 12.5 mg PO QDAY [facility] Nitroglycerin/Dextrose (Tridil Drip 50mg/250ml) 50 mg in 250 mls @ 3 mls/hr IV TITR [facility]; Protocol Last Titration: 04/02/22 11:03 Dose: 40 mcg/min, 12 mls/hr Labetalol HCl (Labetalol 200 Mg Tab) 200 mg PO BID [facility] Last Admin: 04/02/22 10:41 Dose: 200 mg Lisinopril (Lisinopril 20 Mg Tab) 20 mg PO QDAY [facility] Magnesium Hydroxide (Magnesium Hydroxide (Mom) Oral Liqd Udc) 30 ml PO Q4H PRN PRN Reason: Constipation Morphine Sulfate (Morphine 2 Mg/1 Ml Inj) 2 mg IV Q4H PRN PRN Reason: Pain, Moderate (4-6) Morphine Sulfate (Morphine 2 Mg/1 Ml Inj) 2 mg IV Q5MIN PRN PRN Reason: Chest Pain unrelieved by NTG Nicotine (Nicotine 21 Mg/24 Hr Patch) 21 mg TD QDAY [facility] Last Admin: 04/02/22 10:41 Dose: 21 mg Nitroglycerin (Nitroglycerin 0.4 Mg Tab Subl) 0.4 mg SL Q5M PRN PRN Reason: Chest Pain Ondansetron HCl (Ondansetron 4 Mg/2 Ml Inj) 4 mg IV Q8H PRN PRN Reason: Nausea And Vomiting Last Admin: 04/02/22 02:00 Dose: 4 mg Sodium Chloride (Sodium Chloride 0.9% 10 Ml Flush Syringe) 10 ml IV BID [facility] Last Admin: 04/02/22 10:42 Dose: 10 ml Sodium Chloride (Sodium Chloride 0.9% 10 Ml Flush Syringe) 10 ml IV PRN PRN PRN Reason: LINE FLUSH Tramadol HCl (Tramadol 50 Mg Tab) 50 mg PO Q6H PRN PRN Reason: Pain, Moderate (4-6) Review of Systems All systems: negative Physical Examination Vital signs: Vital Signs Pulse Resp BP Pulse Ox 118 H 16 238/151 99 04/01/22 18:15 04/01/22 18:15 04/01/22 18:15 04/01/22 18:15 General appearance: no acute distress, alert Eyes: non-icteric ENT: oropharynx moist Neck: supple, no JVD Effort: normal Ascultation: Bilateral: clear Cardiovascular: regular rate and rhythm Gastrointestinal: normoactive bowel sounds, soft, non-tender Integumentary: normal Extremities: no cyanosis, no edema Musculoskeletal: no deformities Gait: other (Resting in bed at this time.) normal mental status, non-focal exam, pupils equal and round, CN II-XII normal depressed Results - Laboratory Findings CBC and BMP: 04/01/22 Unknown 04/02/22 05:59 PT/INR, D-dimer PT 14.6 Sec. (12.2-14.9) 04/01/22 Unknown INR 1.00 (0.87-1.13) 04/01/22 Unknown Abnormal lab findings: Abnormal Labs 04/01/22 04/01/22 04/01/22 22:32 Unknown Unknown Lymph % (Auto) 9.0 L [place] % (Auto) 12.4 H Lymph # (Auto) 0.8 L [place] # (Auto) 1.1 H Seg Neutrophils % 74.9 H Sodium Chloride BUN 21 H Glucose 134 H 141 H 04/02/22 05:59 Lymph % (Auto) [place] % (Auto) Lymph # (Auto) [place] # (Auto) Seg Neutrophils % Sodium 136 L Chloride 97.6 L BUN Glucose 116 H - Diagnostic Findings Chest x-ray: report reviewed, image reviewed U/S of Legs: report reviewed, image reviewed Additional studies: CHEST 1 VIEW 04/01/2022 6:16 PM INDICATION / CLINICAL INFORMATION: Chest Pain. COMPARISON: One view of the chest from 07/21/2020. FINDINGS: SUPPORT DEVICES: None. HEART / MEDIASTINUM: The cardiac silhouette is mildly enlarged. LUNGS / PLEURA: There are generalized bilateral interstitial opacities. No dens e area of consolidation. No significant pleural effusion. No pneumothorax. ADDITIONAL FINDINGS: No significant additional findings. IMPRESSION: Mild cardiomegaly with suspected pulmonary edema. CTA CHEST, ABDOMEN, AND PELVIS (AORTIC DISSECTION) 04/01/22 INDICATION / CLINICAL INFORMATION: Chest pain, LLQ pain. TECHNIQUE: Axial CT images were obtained through the chest, abdomen, and pelvis after injection of 100 cc Omnipaque 350 IV contrast. 3 plane MIP and/or 3D reconstructions were produced. All CT scans at this location are performed using CT dose reduction for ALARA by means of automated exposure control. COMPARISON: 2 views of the chest performed today. FINDINGS: HEART: - Size: Mildy enlarged. - [place] Coronary Calcification: None. - Pericardium: No pericardial effusion. THORACIC AORTA: - Dissection: No dissection. - Aneurysm: No aneurysm or pseudoaneurysm. - Atherosclerosis: No significant atherosclerosis. GREAT VESSELS: No acute abnormality. No significant atherosclerosis. PULMONARY ARTERIES: No pulmonary emboli. CHEST VEINS: Single SVC of normal caliber as visualized to the right of m idline. No significant abnormality. ABDOMINAL AORTA: - Dissection: No dissection. - Aneurysm: No aneurysm or pseudoaneurysm. - Atherosclerosis: No significant atherosclerosis. CELIAC TRUNK: No significant abnormality. SUPERIOR MESENTERIC ARTERY: No significant abnormality. RENAL ARTERIES: No significant abnormality. INFERIOR MESENTERIC ARTERY: No significant abnormality. RIGHT ILIAC ARTERIES: No acute abnormality. No significant atherosclerosis. LEFT ILIAC ARTERIES: No acute abnormality. No significant atherosclerosis. RIGHT FEMORAL ARTERIES: No acute abnormality. No significant atherosclerosis. LEFT FEMORAL ARTERIES: No acute abnormality. No significant atherosclerosis. ABDOMINOPELVIC VEINS: Single IVC of normal caliber to the right of midline. No significant abnormality. ADDITIONAL CHEST FINDINGS: No significant additional findings. ADDITIONAL ABDOMINOPELVIC FINDINGS: No significant additional findings. SKELETAL SYSTEM: No significant abnormality. IMPRESSION: 1. No aortic dissection or other acute findings. 2. Mild cardiomegaly. Assessment and Plan 31-year-old -[place] male with known history of hypertension presenting to the emergency room today complaining of chest pain. Chest pain is said to be left-sided and was burning in nature. Chest pain started about an hour prior to reporting to the emergency room. He admits that he has not been compliant with his blood pressure medication because he has been depressed lately. Chest pain is nonradiating, no known relieving or exacerbating factor. Patient denies any headache or dizziness, denies any nausea vomiting and denies any hematuria or dysuria. Denies any cough or shortness of breath. Patient has history of asthma as child. Patient has history of smoking 1 pack a day x 6 year s. Counseled to stop smoking. Denies alcohol or drug abuse. 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 No known drug allergies. Denies any surgical history. Upon arrival in the emergency room today blood pressure was in the 230s systolic and 120s diastolic. He had a dose of IV hydralazine without any significant improvement. He was subsequently placed on nitro glycerin drip. Work-up in the emergency room today including labs, CT scan of the chest and abdomen were unremarkable. Patient being admitted to ICU for hypertensive urgency. Patient awake. Resting on room air. O2 saturation 97%. Denies shortness of breath or cough. Still complaining chest pain. No acute respiratory distress. Patient afebrile. No leukocytosis. Blood pressure 185/108, pulse 108, Respirations 24. Chest xray 04/01/22 reported Mild cardiomegaly with suspected pulmonary edema. CTA of chest 04/01/22 reported No pulmonary emboli. Patient presently on S/C Lovenox, Famotidine and Nicotine patch. Cardiology consulted for chest pain. Chest pain management as per cardiology Patients mother at bed side by the time of ny examination. Explained patients respiratory status to her. I spent critical care time of 45 minutes, obtaining the history, Examine the patient, review the chest xray, CTA of chest, review lab results and talking to the nursing staff and work up plan of treatment on this patint with chest pain. - Patient Problems (1) Hypertensive urgency Current Visit: Yes Status: Acute Plan to address problem: Patient is on Nitroglycerine drip. Management as per primary care and cardiology. (2) Left-sided chest pain Current Visit: Yes Status: Acute Plan to address problem: Management as per cardiology. (3) Tobacco use Current Visit: Yes Status: Acute Plan to address problem: Counseled to stop smoking. Patient placed on Nicotine patch. Recommend PFTs as out patient.
[2022-04-02] MEDS ORDERED: niCARdipine 50 MG in SODIUM CHLORIDE 0.9% 250ML 230 ML IV SCH (15:00)
--- NOTE | 2022-04-02 15:59 | Consultation ---
History of Present Illness Consult date: 04/02/22 Requesting physician: MELISSA MANCIA Consult reason: other (abnormal echo ?possible mass) History of present illness: Pt is a 31-year-old male with a hx of HTN who presented with complaints of chest pain described as a left-sided burning sensation. Non-radiating. Started around 6pm yesterday prior to arrival. Associated with SOB. Lasted about 6 hrs total. Pt is unsure of any aggravating or relieving factors. Pt also reports onset of LLQ abdominal pain and nausea at the same time. Of note, BP markedly elevated upon arrival with SBP > 200mmHg. Pt admits he was diagnosed with HTN and prescribed antihypertensives many years ago but stopped taking them approximately 2 years ago due to depression. He is not followed by a PCP and has never seen a Box Car [employer]er. Pt was started on an IV NTG gtt shortly after arrival. His BP is improving with tweaks to his PO antihypertensives. NTG weaning underway. Pt developed a headache after starting NTG gtt. He denies any further chest pain or SOB currently but still has 6/10 LLQ pain and nausea with 1 prior episode of emesis. Cardiology has been consulted for abnormal echo, ?possible mass. Full report not complete, but preliminary review does not reveal any mass or thrombus. CTA chest also reveals no acute findings. Pt is previously unknown to our practice. Past History Past Medical History: hypertension. denies: acute [place], CAD, diabetes, DVT, pulmonary embolism, renal failure Past Surgical History: No surgical history Social history: smoking, alcohol abuse (occasional) Family history: diabetes Medications and Allergies Allergies Allergy/AdvReac Type Severity Reaction Status Date / Time No Known Allergies Allergy Verified 04/02/22 10:47 Home Medications Medication Instructions Recorded Confirmed Last Taken Type No Known Home Medications [No 04/02/22 04/02/22 Unknown History Reported Home Medications] Active Meds: Active Medications Acetaminophen (Acetaminophen 325 Mg Tab) 650 mg PO Q6H PRN PRN Reason: Pain, Mild (1-3) Aspirin (Aspirin Ec 325 Mg Tab) 325 mg PO QDAY [facility] Last Admin: 04/02/22 10:41 Dose: 325 mg Enoxaparin Sodium (Enoxaparin 40 Mg/0.4 Ml Inj) 40 mg SUB-Q QDAY@1000 BILL; Protocol Famotidine (Famotidine 20 Mg Tab) 20 mg PO QDAY [facility] Last Admin: 04/02/22 10:41 Dose: 20 mg Hydrochlorothiazide (Hydrochlorothiazide 12.5 Mg Cap) 12.5 mg PO QDAY [facility] Last Admin: 04/02/22 11:37 Dose: 12.5 mg Nicardipine HCl 50 mg/ Sodium (Chloride) 250 mls @ 25 mls/hr IV TITR [facility]; Protocol Labetalol HCl (Labetalol 200 Mg Tab) 200 mg PO BID [facility] Last Admin: 04/02/22 10:41 Dose: 200 mg Lisinopril (Lisinopril 20 Mg Tab) 20 mg PO QDAY [facility] Last Admin: 04/02/22 11:37 Dose: 20 mg Magnesium Hydroxide (Magnesium Hydroxide (Mom) Oral Liqd Udc) 30 ml PO Q4H PRN PRN Reason: Constipation Morphine Sulfate (Morphine 2 Mg/1 Ml Inj) 2 mg IV Q4H PRN PRN Reason: Pain, Moderate (4-6) Morphine Sulfate (Morphine 2 Mg/1 Ml Inj) 2 mg IV Q5MIN PRN PRN Reason: Chest Pain unrelieved by NTG Nicotine (Nicotine 21 Mg/24 Hr Patch) 21 mg TD QDAY [facility] Last Admin: 04/02/22 10:41 Dose: 21 mg Nitroglycerin (Nitroglycerin 0.4 Mg Tab Subl) 0.4 mg SL Q5M PRN PRN Reason: Chest Pain Ondansetron HCl (Ondansetron 4 Mg/2 Ml Inj) 4 mg IV Q8H PRN PRN Reason: Nausea And Vomiting Last Admin: 04/02/22 02:00 Dose: 4 mg Sodium Chloride (Sodium Chloride 0.9% 10 Ml Flush Syringe) 10 ml IV BID [facility] Last Admin: 04/02/22 10:42 Dose: 10 ml Sodium Chloride (Sodium Chloride 0.9% 10 Ml Flush Syringe) 10 ml IV PRN PRN PRN Reason: LINE FLUSH Tramadol HCl (Tramadol 50 Mg Tab) 50 mg PO Q6H PRN PRN Reason: Pain, Moderate (4-6) Review of Systems Constitutional: no fever, no chills Ears, nose, mouth and throat: no nasal congestion, no sore throat Cardiovascular: chest pain, shortness of breath, no orthopnea, no palpitations, no edema, no lightheadedness, no dyspnea on exertion Respiratory: shortness of breath, no cough, no dyspnea on exertion Gastrointestinal: abdominal pain, nausea, vomiting Genitourinary Male: no dysuria Musculoskeletal: no myalgias Integumentary: no rash, no wounds Neurological: headaches, no numbness, no tingling, no seizures, no syncope, no vertigo Endocrine: no polydipsia, no polyuria Hematologic/Lymphatic: no easy bruising, no easy bleeding Allergic/Immunologic: no anaphylaxis Physical Examination Vital Signs Pulse Resp BP Pulse Ox 118 H 16 238/151 99 04/01/22 18:15 04/01/22 18:15 04/01/22 18:15 04/01/22 18:15 General appearance: no acute distress HEENT: Positive: EOMI, Normocephaly Neck: Negative: JVD/HJR Cardiac: Positive: Regular Rhythm, Tachycardia (ST 110s) Lungs: Positive: Other (Unlabored respirations) Neuro: Positive: Grossly Intact Abdomen: Positive: Soft Skin: Negative: Rash Musculoskeletal: No Pain Extremities: Present: warm. Absent: edema Results 04/01/22 Unknown 04/02/22 05:59 Cardiac Enzymes 04/01/22 Range/Units Unknown AST 19 (5-40) units/L Coagulation 04/01/22 Range/Units Unknown PT 14.6 (12.2-14.9) Sec. INR 1.00 (0.87-1.13) APTT 31.0 (24.2-36.6) Sec. CBC 04/01/22 Range/Units Unknown WBC 8.6 (4.5-11.0) K/mm3 RBC 4.80 (3.65-5.03) M/mm3 Hgb 13.9 (11.8-15.2) gm/dl Hct 41.2 (35.5-45.6) % Plt Count 341 (140-440) K/mm3 Lymph # (Auto) 0.8 L (1.2-5.4) K/mm3 [place] # (Auto) 1.1 H (0.0-0.8) K/mm3 Eos # (Auto) 0.2 (0.0-0.4) K/mm3 Baso # (Auto) 0.1 (0.0-0.1) K/mm3 Comprehensive Metabolic Panel 08/06/22 08/06/22 08/07/22 Range/Units 22:32 Unknown 05:59 Sodium 137 140 136 L (137-145) mmol/L Potassium 3.7 4.4 4.0 (3.6-5.0) mmol/L Chloride 98.7 102.5 97.6 L (98-107) mmol/L Carbon Dioxide 22 24 24 (22-30) mmol/L BUN 16 21 H 16 (9-20) mg/dL Creatinine 1.0 1.3 1.0 (0.8-1.3) mg/dL Glucose 134 H 141 H 116 H (75-100) mg/dL Calcium 9.6 9.5 9.6 (8.4-10.2) mg/dL AST 19 (5-40) units/L ALT 24 (7-56) units/L Alkaline Phosphatase 100 (35-129) units/L Total Protein 8.1 (6.3-8.2) g/dL Albumin 4.5 (3.9-5) g/dL - Imaging and Cardiology Echo: pending EKG: report reviewed, image reviewed - EKG Interpretation EKG: no acute changes EKG interpretations - Telemetry EKG Rhythm: Sinus Tachycardia - EKG Sinus rhythms and dysrhythmias: sinus tachycardia Chamber hypertrophy or enlargement: left ventricular hypertro Assessment and Plan Assessment: Chest Pain Abdominal Pain / N/V Hypertensive Urgency Mild Tn Elevation Tobacco Abuse Medical Non-Compliance Plan: Echo pending. Agree with switching NTG gtt to Cardene gtt if needed; however, BP has improved drastically. May be able to wean off altogether. Will optimize oral antihypertensive regimen. Increase Labetalol to 300mg BID. Increase Lisinopril to 40mg daily. Consider addition of CCB if further PO optimization is needed. Tn neg x 2. Mild bump in 3rd trop (0.033). ECG reveals no acute ischemic changes. Stress test may likely be performed as an outpatient. CTA chest neg for PE. Pt seen in conjunction with Dr. Watts, who agrees with the assessment and plan of care. - Patient Problems (1) Chest pain Current Visit: Yes Status: Acute (2) Hypertensive urgency Current Visit: Yes Status: Acute
[2022-04-02] MEDS ORDERED: NITROGLYCERIN DRIP 50 MG/250 ML BOTTLE IV SCH (16:00)
[2022-04-02] MEDS ORDERED: LISINOPRIL 40 MG TAB PO SCH (17:00)
[2022-04-02 17:27] LABS: Chol/HDL Ratio 4.32 %
[2022-04-02] MEDS ORDERED: FUROSEMIDE 40 MG/4 ML INJ IV ONE (22:00)
[2022-04-03] MEDS: ONDANSETRON 4 MG/2 ML INJ IV PRN (01:28)
[2022-04-03 04:59] LABS: Calcium 9.4 mg/dL (8.4-10.2)
[2022-04-03] MEDS: hydroCHLOROthiazide 12.5 MG CAP PO SCH (09:06)
[2022-04-03] MEDS: amLODIPine 10 MG TAB PO SCH (09:06)
[2022-04-03] MEDS: FAMOTIDINE 20 MG TAB PO SCH (09:06)
[2022-04-03] MEDS: ASPIRIN EC 325 MG TAB PO SCH (09:07)
[2022-04-03] MEDS: NICOTINE 21 MG/24 HR PATCH TD SCH (09:07)
[2022-04-03] MEDS ORDERED: ENOXAPARIN 40 MG/0.4 ML INJ SUB-Q SCH (10:00)
--- NOTE | 2022-04-03 10:16 | Electrocardiograph Report ---
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
--- NOTE | 2022-04-03 10:19 | Electrocardiograph Report ---
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
[2022-04-03 11:40] LABS: Hematocrit 40.8 % (35.5-45.6); Hemoglobin 13.4 gm/dl (11.8-15.2); Mean Corpuscular HGB Conc 33 % (32-34); Mean Corpuscular Volume 87 fl (84-94); Platelet Count 385 K/mm3 (140-440); Red Blood Count 4.72 M/mm3 (3.65-5.03); Red Cell Distribution Width 13.8 % (13.2-15.2)
--- NOTE | 2022-04-03 12:19 | Progress Note ---
Assessment and Plan Hypertensive urgency Left sided chest pain Tobacco use - ACS w/up per cardiology - Psychiatry evaluation is appropriate - prn supplemental oxygen to keep O2 sats > 90% - prn bronchodilators (JORDI & LABA) with pulm hygiene per RT - avoid nephrotoxins, renally dose all medications - mobility protocols to prevent pressure ulcers - PT/OT as tolerated - accuchecks with glycemic control per SSI for target blood glucose < 180 mg/dL - tobacco abstinence strongly counseled at the bedside - home oxygen evaluation at discharge - GI & VTE prophylaxis - Flu & pneumovax per protocol - Pulmonary out patient follow up for PFTs and optimization of respiratory status - continue other care per attending / other consultants - prn analgesia per pain score - discharge planning ongoing concurrently - ok to transfer to telemetry ... re-evaluate in am & prn Subjective Date of service: 04/03/22 Interval history: Patient is seen today for: Hypertensive urgency; Left sided chest pain; Tobacco use Seen and examined at bedside; 24hour events reviewed; nursing and respiratory care staff consulted; no adverse overnight events reported to me; resting in bed; feels better; denies chest pain; off NTG drip; denies N/V/F/C Objective Vital Signs - 12hr 04/03/22 04/03/22 04/03/22 00:21 00:31 00:41 Temperature Pulse Rate 99 H 100 H 110 H Respiratory 30 H 32 H 27 H Rate Blood Pressure 137/74 148/92 148/92 O2 Sat by Pulse 95 95 96 Oximetry 04/03/22 04/03/22 04/03/22 00:51 01:01 01:11 Temperature Pulse Rate 105 H 104 H 108 H Respiratory 24 31 H 20 Rate Blood Pressure 164/98 166/99 166/99 O2 Sat by Pulse 97 95 96 Oximetry 04/03/22 04/03/22 04/03/22 01:21 01:31 01:41 Temperature Pulse Rate 104 H 109 H 99 H Respiratory 25 H 22 31 H Rate Blood Pressure 159/97 143/87 143/87 O2 Sat by Pulse 94 99 96 Oximetry 04/03/22 04/03/22 04/03/22 01:51 02:00 02:11 Temperature Pulse Rate 99 H 98 H 99 H Respiratory 29 H 26 H 26 H Rate Blood Pressure 141/73 141/73 131/73 O2 Sat by Pulse 95 96 95 Oximetry 04/03/22 04/03/22 04/03/22 02:21 02:30 02:41 Temperature Pulse Rate 103 H 99 H 110 H Respiratory 27 H 28 H 33 H Rate Blood Pressure 136/70 137/72 137/72 O2 Sat by Pulse 98 95 96 Oximetry 04/03/22 04/03/22 04/03/22 02:51 03:00 03:01 Temperature 99 F Pulse Rate 99 H 100 H Respiratory 30 H 31 H Rate Blood Pressure 131/71 139/68 O2 Sat by Pulse 95 93 Oximetry 04/03/22 04/03/22 04/03/22 03:11 03:21 03:31 Temperature Pulse Rate 107 H 106 H 100 H Respiratory 31 H 32 H 34 H Rate Blood Pressure 139/68 165/96 162/87 O2 Sat by Pulse 94 94 95 Oximetry 04/03/22 04/03/22 04/03/22 03:41 03:51 04:01 Temperature Pulse Rate 103 H 105 H 102 H Respiratory 34 H 33 H 31 H Rate Blood Pressure 162/87 148/82 141/81 O2 Sat by Pulse 93 97 95 Oximetry 04/03/22 04/03/22 04/03/22 04:11 04:21 04:31 Temperature Pulse Rate 109 H 110 H 106 H Respiratory 28 H 29 H 29 H Rate Blood Pressure 141/81 163/92 143/77 O2 Sat by Pulse 95 95 95 Oximetry 04/03/22 04/03/22 04/03/22 04:41 04:50 05:01 Temperature Pulse Rate 110 H 104 H 105 H Respiratory 35 H 31 H 30 H Rate Blood Pressure 143/77 164/98 137/77 O2 Sat by Pulse 95 95 94 Oximetry 04/03/22 04/03/22 04/03/22 05:11 05:21 05:30 Temperature Pulse Rate 115 H 108 H 107 H Respiratory 26 H 31 H 35 H Rate Blood Pressure 149/80 151/91 148/91 O2 Sat by Pulse 97 95 95 Oximetry 04/03/22 04/03/22 04/03/22 05:41 05:51 06:00 Temperature Pulse Rate 112 H 110 H 109 H Respiratory 24 34 H 35 H Rate Blood Pressure 148/91 151/96 152/96 O2 Sat by Pulse 94 94 94 Oximetry 04/03/22 04/03/22 04/03/22 06:11 06:21 06:31 Temperature Pulse Rate 111 H 114 H 106 H Respiratory 37 H 35 H 34 H Rate Blood Pressure 152/96 158/98 143/95 O2 Sat by Pulse 95 94 94 Oximetry 04/03/22 04/03/22 04/03/22 06:41 06:51 07:00 Temperature 102.3 F H Pulse Rate 114 H 113 H 111 H Respiratory 38 H 33 H 35 H Rate Blood Pressure 143/95 143/95 162/96 O2 Sat by Pulse 95 95 95 Oximetry 04/03/22 04/03/22 04/03/22 07:11 07:21 07:31 Temperature Pulse Rate 110 H 112 H 114 H Respiratory 35 H 36 H 29 H Rate Blood Pressure 143/95 160/95 145/76 O2 Sat by Pulse 96 95 94 Oximetry 04/03/22 04/03/22 04/03/22 07:41 07:51 08:00 Temperature Pulse Rate 118 H 115 H 109 H Respiratory 24 37 H 33 H Rate Blood Pressure 162/96 144/84 135/90 O2 Sat by Pulse 97 95 94 Oximetry 04/03/22 04/03/22 04/03/22 08:11 08:21 08:30 Temperature Pulse Rate 113 H 108 H 107 H Respiratory 21 36 H 30 H Rate Blood Pressure 135/90 150/88 140/86 O2 Sat by Pulse 94 93 94 Oximetry 04/03/22 04/03/22 04/03/22 08:41 08:51 09:00 Temperature Pulse Rate 112 H 108 H 107 H Respiratory 17 37 H 32 H Rate Blood Pressure 140/86 133/81 137/82 O2 Sat by Pulse 95 95 93 Oximetry 04/03/22 04/03/22 04/03/22 09:06 09:07 09:11 Temperature Pulse Rate 111 H 112 H 117 H Respiratory 22 Rate Blood Pressure 137/82 137/82 137/82 O2 Sat by Pulse 95 Oximetry 04/03/22 04/03/22 04/03/22 09:21 09:30 09:41 Temperature Pulse Rate 112 H 108 H 111 H Respiratory 30 H 32 H 29 H Rate Blood Pressure 137/90 143/88 143/88 O2 Sat by Pulse 94 93 95 Oximetry 04/03/22 04/03/22 04/03/22 09:51 10:01 10:11 Temperature Pulse Rate 102 H 101 H 103 H Respiratory 35 H 31 H 30 H Rate Blood Pressure 134/83 124/67 124/67 O2 Sat by Pulse 96 93 95 Oximetry 04/03/22 04/03/22 04/03/22 10:21 10:30 10:41 Temperature Pulse Rate 102 H 102 H 101 H Respiratory 30 H 28 H 29 H Rate Blood Pressure 117/67 124/72 124/72 O2 Sat by Pulse 95 94 96 Oximetry 04/03/22 04/03/22 04/03/22 10:51 11:00 11:11 Temperature 100.3 F H Pulse Rate 99 H 101 H 100 H Respiratory 26 H 29 H 28 H Rate Blood Pressure 126/72 125/75 125/75 O2 Sat by Pulse 94 92 96 Oximetry 04/03/22 04/03/22 04/03/22 11:21 11:30 11:41 Temperature Pulse Rate 102 H 104 H 98 H Respiratory 31 H 34 H 32 H Rate Blood Pressure 130/74 128/75 128/75 O2 Sat by Pulse 96 93 96 Oximetry 04/03/22 04/03/22 11:51 12:00 Temperature Pulse Rate 100 H 98 H Respiratory 31 H 28 H Rate Blood Pressure 129/72 120/70 O2 Sat by Pulse 94 94 Oximetry Constitutional: no acute distress, alert Eyes: non-icteric ENT: oropharynx moist Neck: supple, no JVD Effort: normal Ascultation: Bilateral: clear Cardiovascular: regular rate and rhythm Gastrointestinal: normoactive bowel sounds, soft, non-tender, non-distended Integumentary: normal Extremities: no cyanosis, no edema, pulses normal, no ischemia or petechiae Neurologic: normal mental status, non-focal exam, pupils equal and round, CN II- XII normal Psychiatric: mood appropriate, affect normal CBC and BMP: 04/03/22 11:07 04/03/22 04:18 ABG, PT/INR, D-dimer: PT/INR, D-dimer PT 14.6 Sec. (12.2-14.9) 04/01/22 Unknown INR 1.00 (0.87-1.13) 04/01/22 Unknown Abnormal lab findings: Abnormal Labs 04/01/22 04/01/22 04/01/22 22:32 Unknown Unknown WBC Lymph % (Auto) 9.0 L [place] % (Auto) 12.4 H Lymph # (Auto) 0.8 L [place] # (Auto) 1.1 H Seg Neutrophils % 74.9 H Sodium Chloride BUN 21 H Creatinine Glucose 134 H 141 H Phosphorus Troponin T NT-Pro-B Natriuret Pep 04/02/22 04/02/22 04/03/22 05:59 16:28 04:18 WBC Lymph % (Auto) [place] % (Auto) Lymph # (Auto) [place] # (Auto) Seg Neutrophils % Sodium 136 L 130 L Chloride 97.6 L 92.9 L BUN 29 H Creatinine 1.7 H D Glucose 116 H 120 H Phosphorus 5.00 H Troponin T 0.033 H D NT-Pro-B Natriuret Pep 6583 H 04/03/22 11:07 WBC 14.7 H Lymph % (Auto) [place] % (Auto) Lymph # (Auto) [place] # (Auto) Seg Neutrophils % Sodium Chloride BUN Creatinine Glucose Phosphorus Troponin T NT-Pro-B Natriuret Pep Allied health notes reviewed: nursing
--- NOTE | 2022-04-03 12:33 | XRay Report ---
CHEST 1 VIEW 04/03/2022 12:13 PM INDICATION / CLINICAL INFORMATION: fevers. COMPARISON: 04/01/2022 FINDINGS: SUPPORT DEVICES: None. HEART / MEDIASTINUM: Stable mild cardiomegaly LUNGS / PLEURA: There is poor inspiration but the lungs are generally clear. No evidence for pneumoni a, pleural fluid or pneumothorax ADDITIONAL FINDINGS: No significant additional findings. IMPRESSION: 1. Mild cardiomegaly. Lungs clear. No significant change since 04/01/2022. Signer Name: Nghia Aguero Jr, MD Signed: 04/03/2022 12:29 PM Workstation Name: [id number]
--- NOTE | 2022-04-03 13:46 | Progress Note ---
Assessment and Plan Pt is a 31-year-old male with a hx of HTN who presented with complaints of chest pain and onset of LLQ abdominal pain, nausea, and vomiting patient found to be in hypertensive urgency upon arrival with SBP > 200mmHg. Chest Pain Abdominal Pain / N/V ROMAN Cardiomyopathy Hypertensive Urgency Mild Tn Elevation Tobacco Abuse Medical Non-Compliance Echo 04/01/2022-EF 30 to 35%. Moderate to severe concentric LVH. Left atrium is mildly dilated. Trace to mild mitral regurgitation. Trace to mild aortic regurgitation. Trace to mild tricuspid regurgitation. No apparent pulmonary hypertension Plan: BP has improved drastically. Patient previously on lisinopril however has been switched to amlodipine 10 mg p.o. daily due to rising creatinine Patient currently on hydrochlorothiazide 12.5 mg p.o. daily, labetalol 300 mg p.o. twice daily Tn neg x 2. Mild bump in 3rd trop (0.033). ECG reveals no acute ischemic changes. Will plan for stress test as an outpatient No mass noted on on echo Plan of care discussed with patient who verbalized understanding and acknowledgment Pt seen in conjunction with Dr. Watts, who agrees with the assessment and plan of care. - Patient Problems (1) Medical non-compliance Current Visit: Yes Status: Acute (2) Cardiomyopathy Current Visit: Yes Status: Acute (3) ROMAN (acute kidney injury) Current Visit: Yes Status: Acute (4) Hypertensive emergency Current Visit: Yes Status: Acute (5) Tobacco use Current Visit: Yes Status: Acute Subjective Date of service: 04/03/22 Principal diagnosis: Hypertensive urgency Interval history: Patient resting in bed in no acute distress. Patient reports he no longer has chest pain he does report left lower quadrant abdominal pain. Patient noticed to develop slight fevers today Patient noted to be in sinus tach low 100s. No events overnight Objective Vital Signs Temp Pulse Pulse Resp BP Pulse Ox 04/03/22 13:00 98 H 25 H 124/64 93 04/03/22 12:51 98 H 24 117/72 95 04/03/22 12:41 98 H 28 H 124/71 94 04/03/22 12:30 101 H 25 H 124/71 96 04/03/22 12:21 101 H 27 H 128/68 96 04/03/22 12:11 97 H 26 H 120/70 96 04/03/22 12:00 98 H 28 H 120/70 94 04/03/22 11:51 100 H 31 H 129/72 94 04/03/22 11:41 98 H 32 H 128/75 96 04/03/22 11:30 104 H 34 H 128/75 93 04/03/22 11:21 102 H 31 H 130/74 96 04/03/22 11:11 100 H 28 H 125/75 96 04/03/22 11:00 100.3 F H 101 H 29 H 125/75 92 04/03/22 10:51 99 H 26 H 126/72 94 04/03/22 10:41 101 H 29 H 124/72 96 04/03/22 10:30 102 H 28 H 124/72 94 04/03/22 10:21 102 H 30 H 117/67 95 04/03/22 10:11 103 H 30 H 124/67 95 04/03/22 10:01 101 H 31 H 124/67 93 04/03/22 09:51 102 H 35 H 134/83 96 04/03/22 09:41 111 H 29 H 143/88 95 04/03/22 09:30 108 H 32 H 143/88 93 04/03/22 09:21 112 H 30 H 137/90 94 04/03/22 09:11 117 H 22 137/82 95 04/03/22 09:07 112 H 137/82 04/03/22 09:06 111 H 137/82 04/03/22 09:00 107 H 32 H 137/82 93 04/03/22 08:51 108 H 37 H 133/81 95 04/03/22 08:41 112 H 17 140/86 95 04/03/22 08:30 107 H 30 H 140/86 94 04/03/22 08:21 108 H 36 H 150/88 93 04/03/22 08:11 113 H 21 135/90 94 04/03/22 08:00 109 H 33 H 135/90 94 04/03/22 07:51 115 H 37 H 144/84 95 04/03/22 07:41 118 H 24 162/96 97 04/03/22 07:31 114 H 29 H 145/76 94 04/03/22 07:21 112 H 36 H 160/95 95 04/03/22 07:11 110 H 35 H 143/95 96 04/03/22 07:00 102.3 F H 111 H 35 H 162/96 95 04/03/22 06:51 113 H 33 H 143/95 95 04/03/22 06:41 114 H 38 H 143/95 95 04/03/22 06:31 106 H 34 H 143/95 94 04/03/22 06:21 114 H 35 H 158/98 94 04/03/22 06:11 111 H 37 H 152/96 95 04/03/22 06:00 109 H 35 H 152/96 94 04/03/22 05:51 110 H 34 H 151/96 94 04/03/22 05:41 112 H 24 148/91 94 04/03/22 05:30 107 H 35 H 148/91 95 04/03/22 05:21 108 H 31 H 151/91 95 04/03/22 05:11 115 H 26 H 149/80 97 04/03/22 05:01 105 H 30 H 137/77 94 04/03/22 04:50 104 H 31 H 164/98 95 04/03/22 04:41 110 H 35 H 143/77 95 04/03/22 04:31 106 H 29 H 143/77 95 04/03/22 04:21 110 H 29 H 163/92 95 04/03/22 04:11 109 H 28 H 141/81 95 04/03/22 04:01 102 H 31 H 141/81 95 04/03/22 03:51 105 H 33 H 148/82 97 04/03/22 03:41 103 H 34 H 162/87 93 04/03/22 03:31 100 H 34 H 162/87 95 04/03/22 03:21 106 H 32 H 165/96 94 04/03/22 03:11 107 H 31 H 139/68 94 04/03/22 03:01 100 H 31 H 139/68 93 04/03/22 03:00 99 F 04/03/22 02:51 99 H 30 H 131/71 95 04/03/22 02:41 110 H 33 H 137/72 96 04/03/22 02:30 99 H 28 H 137/72 95 04/03/22 02:21 103 H 27 H 136/70 98 04/03/22 02:11 99 H 26 H 131/73 95 04/03/22 02:00 98 H 26 H 141/73 96 04/03/22 01:51 99 H 29 H 141/73 95 04/03/22 01:41 99 H 31 H 143/87 96 04/03/22 01:31 109 H 22 143/87 99 04/03/22 01:21 104 H 25 H 159/97 94 04/03/22 01:11 108 H 20 166/99 96 04/03/22 01:01 104 H 31 H 166/99 95 04/03/22 00:51 105 H 24 164/98 97 04/03/22 00:41 110 H 27 H 148/92 96 04/03/22 00:31 100 H 32 H 148/92 95 04/03/22 00:21 99 H 30 H 137/74 95 04/03/22 00:11 97 H 27 H 134/70 95 04/03/22 00:01 97 H 28 H 134/70 94 04/02/22 23:51 97 H 27 H 130/71 94 04/02/22 23:41 96 H 28 H 162/90 94 04/02/22 23:36 99.1 F 04/02/22 23:30 108 H 26 H 162/90 95 04/02/22 23:21 100 H 30 H 144/87 95 04/02/22 23:16 100 H 98 04/02/22 23:11 100 H 30 H 143/81 95 04/02/22 23:08 99 H 04/02/22 23:01 103 H 29 H 143/81 93 04/02/22 22:51 102 H 30 H 151/82 94 04/02/22 22:41 102 H 30 H 160/89 94 04/02/22 22:31 108 H 29 H 160/89 94 04/02/22 22:21 107 H 32 H 162/105 96 04/02/22 22:11 110 H 26 H 95 04/02/22 22:00 112 H 20 170/107 95 04/02/22 21:50 114 H 20 170/107 96 04/02/22 21:41 117 H 35 H 163/110 95 04/02/22 21:31 112 H 27 H 163/110 96 04/02/22 21:21 116 H 23 95/57 97 04/02/22 21:14 121 H 144/84 04/02/22 21:11 105 H 30 H 144/84 94 04/02/22 21:00 106 H 30 H 144/84 93 04/02/22 20:51 107 H 31 H 144/86 95 04/02/22 20:41 105 H 35 H 146/93 95 04/02/22 20:31 115 H 30 H 146/93 93 04/02/22 20:21 110 H 32 H 154/99 94 04/02/22 20:11 125 H 30 H 153/90 96 04/02/22 20:01 114 H 33 H 153/90 95 04/02/22 20:00 98 04/02/22 19:51 100 F H 111 H 28 H 135/85 95 04/02/22 19:41 108 H 32 H 136/83 94 04/02/22 19:30 107 H 30 H 136/83 93 04/02/22 19:21 107 H 32 H 132/80 95 04/02/22 19:11 104 H 28 H 137/76 94 04/02/22 19:00 103 H 31 H 137/76 94 04/02/22 18:51 110 H 32 H 133/79 94 04/02/22 18:41 105 H 26 H 142/79 95 04/02/22 18:31 101 H 30 H 142/79 95 04/02/22 18:20 106 H 25 H 154/91 95 04/02/22 18:11 108 H 31 H 170/101 95 04/02/22 18:01 111 H 32 H 170/101 96 04/02/22 17:51 106 H 29 H 167/100 95 04/02/22 17:41 126 H 15 154/91 04/02/22 17:31 112 H 22 154/91 95 04/02/22 17:25 118 H 154/95 04/02/22 17:21 110 H 29 H 154/95 96 04/02/22 17:11 104 H 28 H 161/101 96 04/02/22 17:01 110 H 40 H 143/95 96 04/02/22 16:51 116 H 25 H 143/95 95 04/02/22 16:41 100.9 F H 132 H 28 H 142/73 98 04/02/22 16:31 111 H 29 H 127/73 96 04/02/22 16:21 105 H 29 H 127/73 97 04/02/22 16:15 103 H 27 H 98 04/02/22 16:11 108 H 30 H 142/77 92 04/02/22 16:01 106 H 28 H 142/77 94 04/02/22 15:51 106 H 27 H 138/68 97 04/02/22 15:41 103 H 30 H 151/79 95 04/02/22 15:31 101 H 28 H 151/79 94 04/02/22 15:21 104 H 28 H 147/79 95 04/02/22 15:11 105 H 26 H 147/78 94 04/02/22 15:01 99 H 27 H 147/78 94 04/02/22 14:51 99 H 28 H 148/81 94 04/02/22 13:46 98.2 F - Physical Examination General: No Apparent Distress HEENT: Positive: EOMI, Normocephaly Neck: Negative: JVD/HJR Cardiac: Positive: Regular Rhythm, Tachycardia Lungs: Positive: Normal Breath Sounds Neuro: Positive: Grossly Intact Abdomen: Positive: Soft Skin: Negative: Rash Musculoskeletal: No Pain Extremities: Present: warm. Absent: edema - Labs and Meds Lipids 04/02/22 Range/Units 16:28 Triglycerides 51 (2-149) mg/dL Cholesterol 173 (50-199) mg/dL HDL Cholesterol 40 (40-59) mg/dL Cholesterol/HDL Ratio 4.32 % CBC 04/03/22 Range/Units 11:07 WBC 14.7 H (4.5-11.0) K/mm3 RBC 4.72 (3.65-5.03) M/mm3 Hgb 13.4 (11.8-15.2) gm/dl Hct 40.8 (35.5-45.6) % Plt Count 385 (140-440) K/mm3 Comprehensive Metabolic Panel 04/03/22 Range/Units 04:18 Sodium 130 L (137-145) mmol/L Potassium 4.6 (3.6-5.0) mmol/L Chloride 92.9 L (98-107) mmol/L Carbon Dioxide 25 (22-30) mmol/L BUN 29 H (9-20) mg/dL Creatinine 1.7 H D (0.8-1.3) mg/dL Glucose 120 H (75-100) mg/dL Calcium 9.4 (8.4-10.2) mg/dL - Imaging and Cardiology EKG: report reviewed, image reviewed Echo: report reviewed - Telemetry EKG Rhythm: Sinus Tachycardia - EKG Sinus rhythms and dysrhythmias: sinus tachycardia Chamber hypertrophy or enlargement: left ventricular hypertro
--- NOTE | 2022-04-03 17:49 | Progress Note ---
<LASHELL DAWSONLaurent - Last Filed: 04/03/22 18:51> Assessment and Plan Assessment and plan: This is a 31-year-old AA male with depression, hypertension, tobacco dependence and medical noncompliance admitted for hypertensive emergency Neuro: h/o depression, medication noncompliance -Psych consulted, appreciate recommendation -Reorientation as needed -Maintain sleep-wake cycle -As needed analgesia -psych consulted consulted, appreciate recommendations -PT/OT Cardiac: Hypertensive emergency, mild increase in troponin, h/o HTN, cardiomyopathy -Presented with chest pain, BP 230/120s -CT chest without evidence of PE or aortic aneurysm or dissection -Cardiology and CCM consulted, appreciate recommendations -Blood pressure monitoring per protocol -S/p nitroglycerin drip -P.o. hydrochlorothiazide and labetalol -Lisinopril changed to amlodipine due to acute kidney injury -Echo 04/01/2022-EF 30 to 35%. Moderate to severe concentric LVH. Left atrium is mildly dilated. Trace to mild mitral regurgitation. Trace to mild aortic regurgitation. Trace to mild tricuspid regurgitation. No apparent pulmonary hypertension. No mass noted on echo -Per cardiology: Plan for stress test as outpatient -proBNP 6553 Respiratory: Tobacco dependence -Smoking cessation education provided -Nicotine TD -Supplement oxygen as needed -Pulmonary hygiene -SPO2 monitor per protocol GI: Obesity -CT abdomen/pelvis unremarkable -24 hours -PPI -Cardiac diet -BR: Colace : Acute kidney injury, hyponatremia, hypochloremia, hypomagnesemia -Nephrology consulted, appreciate recommendations -Strict intake and output -Renally dose medications -Avoid nephrotoxic medications -Trend BMP ID: Fever -f/u blood culture -BC x2 04/03 -UA 04/03 -Monitor WBC and temperature curve Endo: NAD -Avoid hypoglycemia Heme: NAD -Trend CBC -Transfuse hemoglobin less than 7 -SCDs to BLE while in bed The high probability of a clinically significant, sudden or life threatening deterioration of the [] system(s) required my full and direct attention, in tervention and personal management. The aggregate critical care time was [] minutes. This time is in addition to time spent performing reported procedures but includes the following: [x] Data Review and interpretation [x] Patient assessment and monitoring of vital signs [x] Documentation [x] Medication orders and management Disposition Plan: transfer to floor Total Time Spent with Patient (Minutes): 60 History Interval history: This is a 31-year-old male with HTN, depression, tobacco dependence and noncompliance who presents the emergency department on 04/01 with complaints of left-sided nonradiating chest pain which is burning in nature and started 1 hour prior to report to the emergency department. In the emergency department patient's blood pressure was 230/120s and he was given IV hydralazine without significant improvement and was placed on nitroglycerin drip. Work-up emergency department including labs, CT scan of the chest and abdomen were unremarkable. Patient was admitted to the hospitalist service with consults to [facility] and cardiology for hypertensive emergency Hospital Course to Date: 04/02: Remains on Nitro gtt, SBP still in the 200s this am. Willl resume patient's home meds- labetalol, HTZ, and Lisinopril. Consider cardene gtt if patient remains hypertensive. Cardiomegaly and possible pulmonary edema noted from CXR, Check BNP, 2D Echo pending. Wean drip as tolerated for SBP goal less than 160. Headache most like r/t nitro gtt, PRN analgesia for pain control. [facility] and Cardiology consulted. 04/03: Patient has been weaned off nitroglycerin drip and started on p.o. medications. Blood pressure is better controlled. Patient will be transferred to the floor Hospitalist Physical - Constitutional Vitals: Temp Pulse Resp BP Pulse Ox 99.8 F H 93 H 22 115/68 96 04/03/22 15:00 04/03/22 16:24 04/03/22 16:11 04/03/22 16:24 04/03/22 16:24 General appearance: Present: no acute distress, well-nourished, obese - EENT Eyes: Present: PERRL, EOM intact ENT: hearing intact, clear oral mucosa, dentition normal - Neck Neck: Present: normal ROM - Respiratory Respiratory effort: normal Respiratory: bilateral: diminished - Cardiovascular Rhythm: regular Heart Sounds: Present: S1 & S2. Absent: systolic murmur, diastolic murmur - Extremities Extremities: no ischemia, pulses intact, pulses symmetrical Peripheral Pulses: within normal limits - Abdominal General gastrointestinal: soft, non-tender, non-distended, normal bowel sounds - Integumentary Integumentary: Present: warm, dry - Psychiatric Psychiatric: appropriate mood/affect - Neurologic Neurologic: CNII-XII intact, moves all extremities - Allied Health Allied health notes reviewed: nursing, social work HEART Score - HEART Score EKG: Non-specific Age: < 45 Risk factors: 1-2 risk factors Troponin: Troponin T 0.033 ng/mL (0.00-0.029) H D 04/02/22 16:28 Troponin: < normal limit - Critical Actions Critical Actions: 0-3 pts:0.9-1.7%risk of adverse cardiac event.Candidate for discharge Results - Labs CBC & Chem 7: 04/03/22 11:07 04/03/22 04:18 Labs: Laboratory Last Values WBC 14.7 K/mm3 (4.5-11.0) H 04/03/22 11:07 RBC 4.72 M/mm3 (3.65-5.03) 04/03/22 11:07 Hgb 13.4 gm/dl (11.8-15.2) 04/03/22 11:07 Hct 40.8 % (35.5-45.6) 04/03/22 11:07 MCV 87 fl (84-94) 04/03/22 11:07 MCH 28 pg (28-32) 04/03/22 11:07 MCHC 33 % (32-34) 04/03/22 11:07 RDW 13.8 % (13.2-15.2) 04/03/22 11:07 Plt Count 385 K/mm3 (140-440) 04/03/22 11:07 Lymph % (Auto) 9.0 % (13.4-35.0) L 04/01/22 Unknown [place] % (Auto) 12.4 % (0.0-7.3) H 04/01/22 Unknown Eos % (Auto) 2.8 % (0.0-4.3) 04/01/22 Unknown Baso % (Auto) 0.9 % (0.0-1.8) 04/01/22 Unknown Lymph # (Auto) 0.8 K/mm3 (1.2-5.4) L 04/01/22 Unknown [place] # (Auto) 1.1 K/mm3 (0.0-0.8) H 04/01/22 Unknown Eos # (Auto) 0.2 K/mm3 (0.0-0.4) 04/01/22 Unknown Baso # (Auto) 0.1 K/mm3 (0.0-0.1) 04/01/22 Unknown Seg Neutrophils % 74.9 % (40.0-70.0) H 04/01/22 Unknown Seg Neutrophils # 6.4 K/mm3 (1.8-7.7) 04/01/22 Unknown PT 14.6 Sec. (12.2-14.9) 04/01/22 Unknown INR 1.00 (0.87-1.13) 04/01/22 Unknown APTT 31.0 Sec. (24.2-36.6) 04/01/22 Unknown Sodium 130 mmol/L (137-145) L 04/03/22 04:18 Potassium 4.6 mmol/L (3.6-5.0) 04/03/22 04:18 Chloride 92.9 mmol/L (98-107) L 04/03/22 04:18 Carbon Dioxide 25 mmol/L (22-30) 04/03/22 04:18 Anion Gap 17 mmol/L 04/03/22 04:18 BUN 29 mg/dL (9-20) H 04/03/22 04:18 Creatinine 1.7 mg/dL (0.8-1.3) H D 04/03/22 04:18 Estimated GFR 58 ml/min 04/03/22 04:18 BUN/Creatinine Ratio 17 % 04/03/22 04:18 Glucose 120 mg/dL (75-100) H 04/03/22 04:18 Calcium 9.4 mg/dL (8.4-10.2) 04/03/22 04:18 Phosphorus 5.00 mg/dL (2.5-4.5) H 04/03/22 04:18 Magnesium 2.20 mg/dL (1.7-2.3) 04/03/22 04:18 Total Bilirubin 0.30 mg/dL (0.1-1.2) 04/01/22 Unknown AST 19 units/L (5-40) 04/01/22 Unknown ALT 24 units/L (7-56) 04/01/22 Unknown Alkaline Phosphatase 100 units/L (35-129) 04/01/22 Unknown Troponin T 0.033 ng/mL (0.00-0.029) H D 04/02/22 16:28 NT-Pro-B Natriuret Pep 6583 pg/mL (0-450) H 04/02/22 16:28 Total Protein 8.1 g/dL (6.3-8.2) 04/01/22 Unknown Albumin 4.5 g/dL (3.9-5) 04/01/22 Unknown Albumin/Globulin Ratio 1.3 % 04/01/22 Unknown Triglycerides 51 mg/dL (2-149) 04/02/22 16:28 Cholesterol 173 mg/dL (50-199) 04/02/22 16:28 LDL Cholesterol Direct 120 mg/dL (50-130) 04/02/22 16:28 HDL Cholesterol 40 mg/dL (40-59) 04/02/22 16:28 Cholesterol/HDL Ratio 4.32 % 04/02/22 16:28 Active Medications - Current Medications Current Medications: Generic Name Dose Route Start Last Admin Trade Name Freq PRN Reason Stop Dose Admin Acetaminophen 650 mg 04/01/22 22:22 04/03/22 09:07 Acetaminophen 325 Mg Tab PO 650 mg Q6H PRN Administration Pain, Mild (1-3) Amlodipine Besylate 10 mg 04/03/22 10:00 04/03/22 09:06 Amlodipine 10 Mg Tab PO 10 mg QDAY BILL Administration Aspirin 325 mg 04/02/22 10:00 04/03/22 09:07 Aspirin Ec 325 Mg Tab PO 325 mg QDAY BILL Administration Enoxaparin Sodium 40 mg 04/03/22 10:00 04/03/22 09:06 Enoxaparin 40 Mg/0.4 Ml Inj SUB-Q 40 mg QDAY@1000 BILL Administration Protocol Famotidine 20 mg 04/02/22 11:00 04/03/22 09:06 Famotidine 20 Mg Tab PO 20 mg QDAY BILL Administration Hydrochlorothiazide 12.5 mg 04/02/22 10:00 04/03/22 09:06 Hydrochlorothiazide 12.5 Mg Cap PO 12.5 mg QDAY BILL Administration Labetalol HCl 300 mg 04/02/22 22:00 04/03/22 09:07 Labetalol 100 Mg Tab PO 300 mg BID BILL Administration Magnesium Hydroxide 30 ml 04/01/22 22:22 Magnesium Hydroxide (Mom) Oral Liqd Udc PO Q4H PRN Constipation Morphine Sulfate 2 mg 08/06/22 22:22 Morphine 2 Mg/1 Ml Inj IV Q4H PRN Pain, Moderate (4-6) Morphine Sulfate 2 mg 04/01/22 22:22 Morphine 2 Mg/1 Ml Inj IV Q5MIN PRN Chest Pain unrelieved by NTG Nicotine 21 mg 04/02/22 11:00 04/03/22 09:07 Nicotine 21 Mg/24 Hr Patch TD Not Given QDAY BILL Nitroglycerin 0.4 mg 04/01/22 22:22 Nitroglycerin 0.4 Mg Tab Subl SL Q5M PRN Chest Pain Ondansetron HCl 4 mg 04/01/22 22:22 04/03/22 01:28 Ondansetron 4 Mg/2 Ml Inj IV 4 mg Q8H PRN Administration Nausea And Vomiting Sodium Chloride 10 ml 04/02/22 10:00 04/03/22 09:07 Sodium Chloride 0.9% 10 Ml Flush Syringe IV 10 ml BID BILL Administration Sodium Chloride 10 ml 04/01/22 22:22 Sodium Chloride 0.9% 10 Ml Flush Syringe IV PRN PRN LINE FLUSH Tramadol HCl 50 mg 04/01/22 22:22 Tramadol 50 Mg Tab PO Q6H PRN Pain, Moderate (4-6) Nutrition/Malnutrition Assess - Dietary Evaluation Nutrition/Malnutrition Findings: Nutrition Notes Start: 04/02/22 11:36 Freq: Status: Active Protocol: Document 04/02/22 11:36 TW (Rec: 04/02/22 11:38 TW [id number]) Nutrition Notes Need for Assessment generated from: MD Order,Education Initial or Follow up Brief Note Current Diagnosis Hypertension Other Pertinent Diagnosis Hypertensive emergency Current Diet Cardiac Subjective/Other Information RD consulted for diet education. Pt has hx of medication non-compliance. Minimum of two criteria No Nutrition Intervention Follow-Up By: 04/06/22 Additional Comments F/U for diet education needs and intakes <MELISSA MANCIA - Last Filed: 04/04/22 11:49> Assessment and Plan Assessment and plan: I saw and evaluated the patient. I agree with the findings and the plan of care as documented in the Nurse Practitioner's~note, with the following corrections and additions. Hospitalist Physical - Constitutional Vitals: Temp Pulse Resp BP Pulse Ox 98.2 F 92 H 16 108/59 98 04/04/22 07:42 04/04/22 07:42 04/04/22 03:39 04/04/22 07:42 04/04/22 08:01 HEART Score - HEART Score Troponin: Troponin T 0.033 ng/mL (0.00-0.029) H D 04/02/22 16:28 Results - Labs CBC & Chem 7: 04/04/22 05:36 04/04/22 05:35 Labs: Laboratory Last Values WBC 11.4 K/mm3 (4.5-11.0) H 04/04/22 05:36 RBC 4.69 M/mm3 (3.65-5.03) 04/04/22 05:36 Hgb 13.6 gm/dl (11.8-15.2) 04/04/22 05:36 Hct 40.8 % (35.5-45.6) 04/04/22 05:36 MCV 87 fl (84-94) 04/04/22 05:36 MCH 29 pg (28-32) 04/04/22 05:36 MCHC 33 % (32-34) 04/04/22 05:36 RDW 13.3 % (13.2-15.2) 04/04/22 05:36 Plt Count 346 K/mm3 (140-440) 04/04/22 05:36 Lymph % (Auto) 9.0 % (13.4-35.0) L 04/01/22 Unknown [place] % (Auto) 12.4 % (0.0-7.3) H 04/01/22 Unknown Eos % (Auto) 2.8 % (0.0-4.3) 04/01/22 Unknown Baso % (Auto) 0.9 % (0.0-1.8) 04/01/22 Unknown Lymph # (Auto) 0.8 K/mm3 (1.2-5.4) L 04/01/22 Unknown [place] # (Auto) 1.1 K/mm3 (0.0-0.8) H 04/01/22 Unknown Eos # (Auto) 0.2 K/mm3 (0.0-0.4) 04/01/22 Unknown Baso # (Auto) 0.1 K/mm3 (0.0-0.1) 04/01/22 Unknown Seg Neutrophils % 74.9 % (40.0-70.0) H 04/01/22 Unknown Seg Neutrophils # 6.4 K/mm3 (1.8-7.7) 04/01/22 Unknown PT 14.6 Sec. (12.2-14.9) 04/01/22 Unknown INR 1.00 (0.87-1.13) 04/01/22 Unknown APTT 31.0 Sec. (24.2-36.6) 04/01/22 Unknown Sodium 132 mmol/L (137-145) L 04/04/22 05:35 Potassium 4.1 mmol/L (3.6-5.0) 04/04/22 05:35 Chloride 96.7 mmol/L (98-107) L 04/04/22 05:35 Carbon Dioxide 25 mmol/L (22-30) 04/04/22 05:35 Anion Gap 14 mmol/L 04/04/22 05:35 BUN 42 mg/dL (9-20) H 04/04/22 05:35 Creatinine 2.0 mg/dL (0.8-1.3) H 04/04/22 05:35 Estimated GFR 48 ml/min 04/04/22 05:35 BUN/Creatinine Ratio 21 % 04/04/22 05:35 Glucose 101 mg/dL (75-100) H 04/04/22 05:35 Calcium 8.9 mg/dL (8.4-10.2) 04/04/22 05:35 Phosphorus 5.00 mg/dL (2.5-4.5) H 04/04/22 05:35 Magnesium 2.30 mg/dL (1.7-2.3) 04/04/22 05:35 Total Bilirubin 0.30 mg/dL (0.1-1.2) 04/01/22 Unknown AST 19 units/L (5-40) 04/01/22 Unknown ALT 24 units/L (7-56) 04/01/22 Unknown Alkaline Phosphatase 100 units/L (35-129) 04/01/22 Unknown Troponin T 0.033 ng/mL (0.00-0.029) H D 04/02/22 16:28 NT-Pro-B Natriuret Pep 6583 pg/mL (0-450) H 04/02/22 16:28 Total Protein 8.1 g/dL (6.3-8.2) 04/01/22 Unknown Albumin 4.5 g/dL (3.9-5) 04/01/22 Unknown Albumin/Globulin Ratio 1.3 % 04/01/22 Unknown Triglycerides 51 mg/dL (2-149) 04/02/22 16: Cholesterol 173 mg/dL (50-199) 04/02/22 16:28 LDL Cholesterol Direct 120 mg/dL (50-130) 04/02/22 16: HDL Cholesterol 40 mg/dL (40-59) 04/02/22 16:28 Cholesterol/HDL Ratio 4.32 % 04/02/22 16:28 Urine Color Yellow (Yellow) 04/03/22 12:02 Urine Turbidity Clear (Clear) 04/03/22 12:02 Urine pH 5.0 (5.0-7.0) 04/03/22 12:02 Ur Specific [place] 1.030 (1.003-1.030) 04/03/22 12:02 Urine Protein 30 mg/dl mg/dL (Negative) 04/03/22 12:02 Urine Glucose (UA) Negative mg/dL (Negative) 04/03/22 12:02 Urine Ketones Trace mg/dL (Negative) 04/03/22 12:02 Urine Blood Trace (Negative) 04/03/22 12:02 Urine Nitrite Negative (Negative) 04/03/22 12:02 Ur Reducing Substances Not Reportable 04/03/22 12:02 Urine Bilirubin Negative (Negative) 04/03/22 12:02 Urine Ictotest Not Reportable 04/03/22 12:02 Urine Urobilinogen < 2.0 mg/dL (<2.0) 04/03/22 12:02 Ur Leukocyte Esterase Negative (Negative) 04/03/22 12:02 Urine WBC (Auto) 4.0 /HPF (0.0-6.0) 04/03/22 12:02 Urine RBC (Auto) 7.0 /HPF (0.0-6.0) 04/03/22 12:02 U Epithel Cells (Auto) 2.0 /HPF (0-13.0) 04/03/22 12:02 Hyaline Casts 14 /LPF 04/03/22 12:02 Urine Mucus 3+ /HPF 04/03/22 12:02 Microbiology: Microbiology 04/03/22 16:12 Peripheral/Venous Blood Culture - Preliminary Culture in Progress 04/03/22 16:12 Peripheral/Venous Blood Culture - Preliminary Culture in Progress Active Medications - Current Medications Current Medications: Generic Name Dose Route Start Last Admin Trade Name Freq PRN Reason Stop Dose Admin Acetaminophen 650 mg 04/01/22 22:22 04/03/22 09:07 Acetaminophen 325 Mg Tab PO 650 mg Q6H PRN Administration Pain, Mild (1-3) Amlodipine Besylate 10 mg 04/03/22 10:00 04/04/22 09:16 Amlodipine 10 Mg Tab PO Not Given QDAY [facility] Aspirin 325 mg 04/02/22 10:00 04/04/22 09:16 Aspirin Ec 325 Mg Tab PO 325 mg QDAY BILL Administration Docusate Sodium 100 mg 04/03/22 22:00 04/04/22 09:16 Docusate Sodium 100 Mg Cap PO 100 mg BID BILL Administration Enoxaparin Sodium 30 mg 04/04/22 10:00 04/04/22 09:16 Enoxaparin 30 Mg/0.3 Ml Inj SUB-Q 30 mg QDAY BILL Administration Protocol Famotidine 20 mg 04/02/22 11:00 04/04/22 09:16 Famotidine 20 Mg Tab PO 20 mg QDAY BILL Administration Hydralazine HCl 50 mg 04/04/22 14:00 Hydralazine 25 Mg Tab PO Q8HR [facility] Labetalol HCl 300 mg 04/02/22 22:00 04/03/22 21:36 Labetalol 100 Mg Tab PO 300 mg BID BILL Administration Magnesium Hydroxide 30 ml 04/01/22 22:22 Magnesium Hydroxide (Mom) Oral Liqd Udc PO Q4H PRN Constipation Morphine Sulfate 2 mg 04/01/22 22:22 Morphine 2 Mg/1 Ml Inj IV Q4H PRN Pain, Moderate (4-6) Morphine Sulfate 2 mg 04/01/22 22:22 Morphine 2 Mg/1 Ml Inj IV Q5MIN PRN Chest Pain unrelieved by NTG Nicotine 21 mg 04/02/22 11:00 04/04/22 09:17 Nicotine 21 Mg/24 Hr Patch TD Not Given QDAY BILL Nitroglycerin 0.4 mg 04/01/22 22:22 Nitroglycerin 0.4 Mg Tab Subl SL Q5M PRN Chest Pain Ondansetron HCl 4 mg 04/01/22 22:22 04/03/22 01:28 Ondansetron 4 Mg/2 Ml Inj IV 4 mg Q8H PRN Administration Nausea And Vomiting Sodium Chloride 10 ml 04/02/22 10:00 04/04/22 09:17 Sodium Chloride 0.9% 10 Ml Flush Syringe IV 10 ml BID BILL Administration Sodium Chloride 10 ml 04/01/22 22:22 Sodium Chloride 0.9% 10 Ml Flush Syringe IV PRN PRN LINE FLUSH Tramadol HCl 50 mg 04/01/22 22:22 Tramadol 50 Mg Tab PO Q6H PRN Pain, Moderate (4-6) Nutrition/Malnutrition Assess - Dietary Evaluation Nutrition/Malnutrition Findings: Nutrition Notes Start: 04/02/22 11:36 Freq: Status: Active Protocol: Document 04/02/22 11:36 TW (Rec: 04/02/22 11:38 TW [id number]) Nutrition Notes Need for Assessment generated from: MD Order,Education Initial or Follow up Brief Note Current Diagnosis Hypertension Other Pertinent Diagnosis Hypertensive emergency Current Diet Cardiac Subjective/Other Information RD consulted for diet education. Pt has hx of medication non-compliance. Minimum of two criteria No Nutrition Intervention Follow-Up By: 04/06/22 Additional Comments F/U for diet education needs and intakes
[2022-04-03 20:15] LABS: Hyaline Casts,Urine 14 /LPF; Mucus,Urine 3+ /HPF
[2022-04-03 20:43] LABS: Color,Urine Yellow (Yellow)
[2022-04-03 20:44] LABS: Bilirubin,Urine Negative (Negative); Blood,Urine Trace (Negative); Urobilinogen,Urine < 2.0 mg/dL (<2.0)
[2022-04-03] MEDS: DOCUSATE SODIUM 100 MG CAP PO SCH (21:36)
[2022-04-04 06:16] LABS: Hematocrit 40.8 % (35.5-45.6); Hemoglobin 13.6 gm/dl (11.8-15.2); Mean Corpuscular HGB Conc 33 % (32-34); Mean Corpuscular Volume 87 fl (84-94); Platelet Count 346 K/mm3 (140-440); Red Blood Count 4.69 M/mm3 (3.65-5.03); Red Cell Distribution Width 13.3 % (13.2-15.2)
[2022-04-04 06:34] LABS: Calcium 8.9 mg/dL (8.4-10.2)
[2022-04-04] MEDS ORDERED: SODIUM CHLORIDE 0.9% 500 ML 500 ML IV ONE (08:33)
[2022-04-04] MEDS: amLODIPine 10 MG TAB PO SCH (09:16)
[2022-04-04] MEDS: FAMOTIDINE 20 MG TAB PO SCH (09:16)
[2022-04-04] MEDS: ASPIRIN EC 325 MG TAB PO SCH (09:16)
[2022-04-04] MEDS: DOCUSATE SODIUM 100 MG CAP PO SCH (09:16)
[2022-04-04] MEDS: NICOTINE 21 MG/24 HR PATCH TD SCH (09:17)
[2022-04-04] MEDS ORDERED: ENOXAPARIN 30 MG/0.3 ML INJ SUB-Q SCH (10:00)
--- NOTE | 2022-04-04 12:06 | Progress Note ---
Assessment and Plan 31-year-old -[place] male with known history of hypertension presenting to the emergency room today complaining of chest pain. Chest pain is said to be left-sided and was burning in nature. Chest pain started about an hour prior to reporting to the emergency room. He admits that he has not been compliant with his blood pressure medication because he has been depressed lately. Chest pain is nonradiating, no known relieving or exacerbating factor. Patient denies any headache or dizziness, denies any nausea vomiting and denies any hematuria or dysuria. Denies any cough or shortness of breath. Patient has history of asthma as child. Patient has history of smoking 1 pack a day x 6 years. Counseled to stop smoking. Denies alcohol or drug abuse. 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 No known drug allergies. Denies any surgical history. Upon arrival in the emergency room today blood pressure was in the 230s systolic and 120s diastolic. He had a dose of IV hydralazine without any significant improvement. He was subsequently placed on nitro glycerin drip. Work-up in the emergency room today including labs, CT scan of the chest and abdomen were unremarkable. Patient being admitted to ICU for hypertensive urgency. Blood pressure improved. Patient transfered to telemetry now. Patient awake. Resting on room air. O2 saturation 96%. Denies shortness of breath or cough or chest pain.. No acute respiratory distress. Patient afebrile. No leukocytosis. Blood pressure 116/70, pulse 90, Respirations 20. Chest xray 04/01/22 reported Mild cardiomegaly with suspected pulmonary edema. CTA of chest 04/01/22 reported No pulmonary emboli. Chest xray 04/03/22 reported Mild cardiomegaly. Lungs clear. No significant change since 04/01/2022. Patient presently on S/C Lovenox, Famotidine and Nicotine patch. Cardiology on consult for chest pain. Chest pain management as per cardiology Patients mother at bed side by the time of my examination. - Patient Problems (1) Hypertensive urgency Status: Acute Plan to address problem: Patient is on Nitroglycerine drip. Blood pressure improved. To days blood pressure 116/70 Management as per primary care and cardiology. (2) Left-sided chest pain Status: Acute Plan to address problem: Management as per cardiology. (3) Tobacco use Status: Acute Plan to address problem: Counseled to stop smoking. Patient placed on Nicotine patch. Recommend PFTs as out patient. Subjective Date of service: 04/04/22 Principal diagnosis: Hypertensive urgency Interval history: 31-year-old -[place] male with known history of hypertension presenting to the emergency room today complaining of chest pain. Chest pain is said to be left-sided and was burning in nature. Chest pain started about an hour prior to reporting to the emergency room. He admits that he has not been compliant with his blood pressure medication because he has been depressed lately. Chest pain is nonradiating, no known relieving or exacerbating factor. Patient denies any headache or dizziness, denies any nausea vomiting and denies any hematuria or dysuria. Denies any cough or shortness of breath. Patient has history of asthma as child. Patient has history of smoking 1 pack a day x 6 years. Counseled to stop smoking. Denies alcohol or drug abuse. 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 No known drug allergies. Denies any surgical history. Upon arrival in the emergency room today blood pressure was in the 230s systolic and 120s diastolic. He had a dose of IV hydralazine without any significant improvement. He was subsequently placed on nitro glycerin drip. Work-up in the emergency room today including labs, CT scan of the chest and abdomen were unremarkable. Patient being admitted to ICU for hypertensive urgency. Blood pressure improved. Patient transfered to telemetry now. Patient awake. Resting on room air. O2 saturation 96%. Denies shortness of breath or cough or chest pain.. No acute respiratory distress. Patient afebrile. No leukocytosis. Blood pressure 116/70, pulse 90, Respirations 20. Chest xray 04/01/22 reported Mild cardiomegaly with suspected pulmonary edema. CTA of chest 04/01/22 reported No pulmonary emboli. Chest xray 04/03/22 reported Mild cardiomegaly. Lungs clear. No significant change since 04/01/2022. Patient presently on S/C Lovenox, Famotidine and Nicotine patch. Cardiology on consult for chest pain. Chest pain management as per cardiology Patients mother at bed side by the time of my examination. Objective Vital Signs - 12hr 04/04/22 04/04/22 04/04/22 03:39 07:42 08:01 Temperature 98.6 F 98.2 F Pulse Rate 94 H 92 H Respiratory 16 Rate Blood Pressure 101/48 108/59 O2 Sat by Pulse 96 98 98 Oximetry Constitutional: no acute distress, alert Eyes: non-icteric ENT: oropharynx moist Neck: supple, no JVD Effort: normal Ascultation: Bilateral: clear Cardiovascular: regular rate and rhythm Gastrointestinal: normoactive bowel sounds, soft, non-tender, non-distended Integumentary: normal Extremities: no cyanosis, no edema, pulses normal, no ischemia or petechiae Neurologic: normal mental status, non-focal exam, pupils equal and round, CN II- XII normal Psychiatric: mood appropriate, affect normal CBC and BMP: 04/04/22 05:36 04/04/22 15:12 ABG, PT/INR, D-dimer: PT/INR, D-dimer PT 14.6 Sec. (12.2-14.9) 04/01/22 Unknown INR 1.00 (0.87-1.13) 04/01/22 Unknown Abnormal lab findings: Abnormal Labs 04/01/22 04/01/22 04/01/22 22:32 Unknown Unknown WBC Lymph % (Auto) 9.0 L [place] % (Auto) 12.4 H Lymph # (Auto) 0.8 L [place] # (Auto) 1.1 H Seg Neutrophils % 74.9 H Sodium Chloride BUN 21 H Creatinine Glucose 134 H 141 H Phosphorus Troponin T NT-Pro-B Natriuret Pep 04/02/22 04/02/22 04/03/22 05:59 16:28 04:18 WBC Lymph % (Auto) [place] % (Auto) Lymph # (Auto) [place] # (Auto) Seg Neutrophils % Sodium 136 L 130 L Chloride 97.6 L 92.9 L BUN 29 H Creatinine 1.7 H D Glucose 116 H 120 H Phosphorus 5.00 H Troponin T 0.033 H D NT-Pro-B Natriuret Pep 6583 H 04/03/22 04/04/22 04/04/22 11:07 05:35 05:36 WBC 14.7 H 11.4 H Lymph % (Auto) [place] % (Auto) Lymph # (Auto) [place] # (Auto) Seg Neutrophils % Sodium 132 L Chloride 96.7 L BUN 42 H Creatinine 2.0 H Glucose 101 H Phosphorus 5.00 H Troponin T NT-Pro-B Natriuret Pep Chest x-ray: report reviewed, image reviewed Additional Studies: CHEST 1 VIEW 04/03/2022 12:13 PM INDICATION / CLINICAL INFORMATION: fevers. COMPARISON: 04/01/2022 FINDINGS: SUPPORT DEVICES: None. HEART / MEDIASTINUM: Stable mild cardiomegaly LUNGS / PLEURA: There is poor inspiration but the lungs are generally clear. No evidence for pneumonia, pleural fluid or pneumothorax ADDITIONAL FINDINGS: No significant additional findings. IMPRESSION: 1. Mild cardiomegaly. Lungs clear. No significant change since 04/01/2022. Allied health notes reviewed: nursing
--- NOTE | 2022-04-04 12:43 | Discharge Summary ---
Providers - Providers Date of Admission: 04/01/22 22:22 Date of discharge: 04/04/22 Attending physician: ANA CRAIG MD 04/01/22 Consult to Cardiac Rehabilitation [CONS] Routine Reason For Exam: Phase I 04/01/22 22:22 Consult to Dietitian/Nutrition [CONS] Routine Physician Instructions: Reason For Exam: Reason for Consult: Diet education 04/02/22 10:03 Consult to Physician [CONS] Routine Comment: margoth hussein/aby ayers Consulting Provider: EDWIN ALEMAN Physician Instructions: Reason For Exam: Hypertensive Emergency 04/02/22 12:18 Consult to Physician [CONS] Routine Comment: afua wright/ armen Consulting Provider: JOSE DE JESUS HERNANDEZ Physician Instructions: Reason For Exam: ABNORMAL ECHO POSSIBLE MASS 04/03/22 18:53 Consult to Physician [CONS] Routine Comment: Consulting Provider: DRAKE NICHOLS Physician Instructions: Reason For Exam: depression 04/03/22 18:54 Physical Therapy Evaluation and Treat [CONS] Routine Comment: Reason For Exam: weakness Primary care physician: [facility] Hospitalization Reason for admission: chest pain Condition: Stable Hospital course: History Interval history: This is a 31-year-old male with HTN, depression, tobacco dependence and noncompliance who presents the emergency department on 04/01 with complaints of left-sided nonradiating chest pain which is burning in nature and started 1 hour prior to report to the emergency department. In the emergency department patient's blood pressure was 230/120s and he was given IV hydralazine without significant improvement and was placed on nitroglycerin drip. Work-up emergency department including labs, CT scan of the chest and abdomen were unremarkable. Patient was admitted to the hospitalist service with consults to CCM and cardiology for hypertensive emergency Hospital Course to Date: 04/02: Remains on Nitro gtt, SBP still in the 200s this am. Willl resume patient's home meds- labetalol, HTZ, and Lisinopril. Consider cardene gtt if patient remains hypertensive. Cardiomegaly and possible pulmonary edema noted from CXR, Check BNP, 2D Echo pending. Wean drip as tolerated for SBP goal less than 160. Headache most like r/t nitro gtt, PRN analgesia for pain control. CCM and Cardiology consulted. 04/03: Patient has been weaned off nitroglycerin drip and started on p.o. medications. Blood pressure is better controlled. Patient will be transferred to the floor 04/04 Blood pressure optimized. However, renal function worsened with Cr inc from 1.7 to 2.0. Suspect HCTZ is offending agent. D/c. Initiated on hydralazine as alternative agent in addition to amlodipine. Patient has repeat BMP pending for this afternoon. If Cr improves, patient can be discharged home with instructions to follow up with OP primary care doctor. Rx for amlodipine, labetalol, and hydralazine e-rx to pharmacy. Assessment and Plan: This is a 31-year-old AA male with depression, hypertension, tobacco dependence and medical noncompliance admitted for hypertensive emergency Neuro: h/o depression, medication noncompliance -Psych consulted, appreciate recommendation -Reorientation as needed -Maintain sleep-wake cycle -As needed analgesia -psych consulted consulted, appreciate recommendations -PT/OT Cardiac: Hypertensive emergency, mild increase in troponin, h/o HTN, cardiomyopathy -Presented with chest pain, BP 230/120s -CT chest without evidence of PE or aortic aneurysm or dissection -Cardiology and CCM consulted, appreciate recommendations -Blood pressure monitoring per protocol -S/p nitroglycerin drip -P.o. hydrochlorothiazide and labetalol -Lisinopril changed to amlodipine due to acute kidney injury -Echo 04/01/2022-EF 30 to 35%. Moderate to severe concentric LVH. Left atrium is mildly dilated. Trace to mild mitral regurgitation. Trace to mild aortic regurgitation. Trace to mild tricuspid regurgitation. No apparent pulmonary hypertension. No mass noted on echo -Per cardiology: Plan for stress test as outpatient -proBNP 6553 Respiratory: Tobacco dependence -Smoking cessation education provided -Nicotine TD -Supplement oxygen as needed -Pulmonary hygiene -SPO2 monitor per protocol GI: Obesity -CT abdomen/pelvis unremarkable -24 hours -PPI -Cardiac diet -BR: Colace : Acute kidney injury, hyponatremia, hypochloremia, hypomagnesemia -Nephrology consulted, appreciate recommendations -Strict intake and output -Renally dose medications -Avoid nephrotoxic medications -Trend BMP ID: Fever -f/u blood culture -BC x2 04/03 -UA 04/03 -Monitor WBC and temperature curve Endo: NAD -Avoid hypoglycemia Heme: NAD -Trend CBC -Transfuse hemoglobin less than 7 -SCDs to BLE while in bed Disposition: 01 HOME / SELF CARE / HOMELESS Final Discharge Diagnosis (Prints w/discharge instructions): Hypertensive emergency, acute kidney injury due to vasomotor nephropathy Time spent for discharge: 35 Core Measure Documentation - Palliative Care Palliative Care/ Comfort Measures: Not Applicable - Core Measures Any of the following diagnoses?: none Exam - Physical Exam Narrative exam: Physical Exam: VITAL SIGNS: Reviewed. GENERAL: The patient appears normally developed, Vital signs as documented. HEAD: No signs of head trauma. EYES: Pupils are equal. Extraocular motions intact. EARS: Hearing grossly intact. MOUTH: Oropharynx is normal. NECK: No adenopathy, no JVD. CHEST: Chest with clear breath sounds bilaterally. No wheezes, rales, or rhonchi. CARDIAC: Regular rate and rhythm. S1 and S2, without murmurs, gallops, or rubs. VASCULAR: No Edema. Peripheral pulses normal and equal in all extremities. ABDOMEN: Soft, non tender and non distended. No rebound or guarding, and no masses palpated. Bowel Sounds normal. MUSCULOSKELETAL: Good range of motion of all major joints. Extremities without clubbing, cyanosis or edema. NEUROLOGIC EXAM: Alert and oriented x 4. no focal sensory or strength deficits. PSYCHIATRIC: Mood normal. SKIN: detail exam as documented in skin assessment - Constitutional Vitals: Temp Pulse Resp BP Pulse Ox 98.4 F 90 16 116/70 96 04/04/22 12:23 04/04/22 12:23 04/04/22 03:39 04/04/22 12:23 04/04/22 12:23 Plan Follow up with: [facility] MD [Primary Care Provider] - 7 Days Prescriptions: amLODIPine 10 mg PO QDAY 30 Days #30 tablet hydrALAZINE [Apresoline TAB] 50 mg PO Q8HR 30 Days #90 tablet labetaloL [Labetalol 100mg TAB] 300 mg PO BID 30 Days #60 tablet
[2022-04-04] MEDS ORDERED: hydrALAZINE 25 MG TAB PO SCH (14:00)
--- NOTE | 2022-04-04 14:10 | Progress Note ---
Assessment and Plan Pt is a 31-year-old male with a hx of HTN who presented with complaints of chest pain and onset of LLQ abdominal pain, nausea, and vomiting patient found to be in hypertensive urgency upon arrival with SBP > 200mmHg. Chest Pain Abdominal Pain / N/V ROMAN Cardiomyopathy Hypertensive Urgency Mild Tn Elevation Tobacco Abuse Medical Non-Compliance Echo 04/01/2022-EF 30 to 35%. Moderate to severe concentric LVH. Left atrium is mildly dilated. Trace to mild mitral regurgitation. Trace to mild aortic regurgitation. Trace to mild tricuspid regurgitation. No apparent pulmonary hypertension Plan: Blood pressure remains controlled Continue amlodipine 10 mg p.o. daily Patient currently on hydrochlorothiazide 12.5 mg p.o. daily, labetalol 300 mg p.o. twice daily Will plan for stress test as an outpatient Plan of care discussed with patient who verbalized understanding and acknowledgment Patient is scheduled for Lexiscan MPI stress test on 04/19/2022 at 11:30 AM in our [place] location Patient has been scheduled for follow-up appointment with Dr. Watts, [facility] av specialist, on 05/22/2022 at 11:25 AM in our [place] location. Phone #[phone] Pt seen in conjunction with Dr. Watts, who agrees with the assessment and plan of care. - Patient Problems (1) Medical non-compliance Current Visit: Yes Status: Acute (2) Cardiomyopathy Current Visit: Yes Status: Acute (3) ROMAN (acute kidney injury) Current Visit: Yes Status: Acute (4) Hypertensive emergency Current Visit: Yes Status: Acute (5) Tobacco use Current Visit: Yes Status: Acute Subjective Date of service: 04/04/22 Principal diagnosis: Hypertensive urgency Interval history: Patient resting in bed in no acute distress. Reports feeling well Sinus 80s to 90s no events Objective Vital Signs Temp Pulse Resp BP Pulse Ox 04/04/22 12:23 98.4 F 90 116/70 96 04/04/22 08:01 98 04/04/22 07:42 98.2 F 92 H 108/59 98 04/04/22 03:39 98.6 F 94 H 16 101/48 96 04/03/22 23:58 98.5 F 94 H 12 131/61 97 04/03/22 19:48 98.7 F 91 H 14 122/72 96 04/03/22 16:24 93 H 115/68 96 04/03/22 16:11 93 H 22 101/42 97 04/03/22 16:00 87 22 101/42 95 04/03/22 15:51 87 23 101/52 95 04/03/22 15:41 89 23 107/55 96 04/03/22 15:30 91 H 24 107/55 95 04/03/22 15:21 90 23 103/53 96 04/03/22 15:11 93 H 27 H 103/53 95 04/03/22 15:00 99.8 F H 90 27 H 103/53 94 04/03/22 14:51 92 H 22 101/55 93 04/03/22 14:41 91 H 23 101/55 91 04/03/22 14:31 98 H 21 101/55 89 04/03/22 14:21 97 H 26 H 120/64 94 04/03/22 14:11 99 H 25 H 117/73 96 - Physical Examination General: No Apparent Distress HEENT: Positive: EOMI, Normocephaly Neck: Negative: JVD/HJR Cardiac: Positive: Reg Rate and Rhythm Lungs: Positive: Normal Breath Sounds Neuro: Positive: Grossly Intact Abdomen: Positive: Soft Skin: Negative: Rash Musculoskeletal: No Pain Extremities: Present: warm. Absent: edema - Labs and Meds CBC 04/04/22 Range/Units 05:36 WBC 11.4 H (4.5-11.0) K/mm3 RBC 4.69 (3.65-5.03) M/mm3 Hgb 13.6 (11.8-15.2) gm/dl Hct 40.8 (35.5-45.6) % Plt Count 346 (140-440) K/mm3 Comprehensive Metabolic Panel 04/04/22 Range/Units 05:35 Sodium 132 L (137-145) mmol/L Potassium 4.1 (3.6-5.0) mmol/L Chloride 96.7 L (98-107) mmol/L Carbon Dioxide 25 (22-30) mmol/L BUN 42 H (9-20) mg/dL Creatinine 2.0 H (0.8-1.3) mg/dL Glucose 101 H (75-100) mg/dL Calcium 8.9 (8.4-10.2) mg/dL - Imaging and Cardiology EKG: report reviewed, image reviewed Echo: report reviewed - Telemetry EKG Rhythm: Sinus Rhythm - EKG Sinus rhythms and dysrhythmias: sinus tachycardia Chamber hypertrophy or enlargement: left ventricular hypertro - Allied health notes Allied health notes reviewed: nursing
[2022-04-04 16:30] VITALS: BP 143/80
== END 2022-04-04 18:15 | disposition home or self-care (01) | DRG 304 ==
LOC: ED 18:09 → CC1 22:22 → 4A 04-03 16:20
PROVIDERS: ADMIT Internal Medicine Geriatric Medicine; ATTEND Internal Medicine
DX: I16.1 Hypertensive emergency (principal); N17.0 Acute kidney failure with tubular necrosis; I42.9 Cardiomyopathy, unspecified; E87.1 Hypo-osmolality and hyponatremia; I10 Essential (primary) hypertension; Z91.19 Patient's noncompliance with other medical treatment and regimen; F32.9 Major depressive disorder, single episode, unspecified; F17.200 Nicotine dependence, unspecified, uncomplicated; E66.9 Obesity, unspecified; E87.8 Other disorders of electrolyte and fluid balance, not elsewhere classified; E83.42 Hypomagnesemia; Z83.3 Family history of diabetes mellitus
CPT/HCPCS: 36415; 71045; 71275; 74174; 80048; 80053; 80061; 81001; 83735; 83880; 84100; 84484; 85025; 85027; 85610; 85730; 87040; 93005; 93306; G0378; J3490; C8929; J0360; J1650; J2270; J2405; J7040; Q9967